=== PATIENT | female | born 1965 | race Two or more races ===

== ENCOUNTER 2020-05-16 14:01 | Outpatient (REF) | payer MEDICAID, SELFPAY ==
--- NOTE | 2020-05-16 | US_ITS ---
EXAMINATION: ULTRASOUND PELVIS COMPLETE. CLINICAL INFORMATION: Postmenopausal bleeding. COMPARISON: None TECHNIQUE: Transabdominal and transvaginal ultrasound the pelvis is performed. FINDINGS: On transabdominal ultrasound the uterus is retroverted and retroflexed measuring 5.9 cm and length and 3.1 cm in AP and 4.0 cm in transverse dimension. Endometrial thickness is 0.5 cm. There is a hypoechoic lesion extends fundal endometrial to the myometrium question scar, less likely fibroid. Small nabothian cyst is seen in the cervix. Right ovary measures 1.8 x 1.8 x 0.7 cm and volume 1.2 mL. Previously it measured 1.6 x 0.9 x 1.3 cm and volume 1.0 mL. Left ovary measures 10.7 x 0.6 x 0.7 cm and volume 0.4 mL. There is no free fluid in the cul-de-sac US/US pelvic complete IMPRESSION: Suspect scarring along the fundal endometrium. Small nabothian cysts seen in the cervix. The ovaries are unremarkable.
--- NOTE | 2020-05-16 | US_ITS ---
EXAMINATION: ULTRASOUND PELVIS COMPLETE. CLINICAL INFORMATION: Postmenopausal bleeding. COMPARISON: None TECHNIQUE: Transabdominal and transvaginal ultrasound the pelvis is performed. FINDINGS: On transabdominal ultrasound the uterus is retroverted and retroflexed measuring 5.9 cm and length and 3.1 cm in AP and 4.0 cm in transverse dimension. Endometrial thickness is 0.5 cm. There is a hypoechoic lesion extends fundal endometrial to the myometrium question scar, less likely fibroid. Small nabothian cyst is seen in the cervix. Right ovary measures 1.8 x 1.8 x 0.7 cm and volume 1.2 mL. Previously it measured 1.6 x 0.9 x 1.3 cm and volume 1.0 mL. Left ovary measures 10.7 x 0.6 x 0.7 cm and volume 0.4 mL. There is no free fluid in the cul-de-sac US/US transvaginal IMPRESSION: Suspect scarring along the fundal endometrium. Small nabothian cysts seen in the cervix. The ovaries are unremarkable.
== END 2020-05-16 14:02 | disposition home or self-care (01) ==
LOC: HO.US 14:01
PROVIDERS: Visit Provider Advanced Practice Midwife
DX: N95.0 Postmenopausal bleeding (principal)
CPT/HCPCS: 76830; 76856

== ENCOUNTER → 2020-05-24 09:49 | Outpatient (BNVA) | payer MEDICAID, SELFPAY | PROVIDERS: PCP Family Medicine; Referring Provider Family Medicine; Visit Provider Advanced Practice Midwife | DX: N93.9 Abnormal uterine and vaginal bleeding, unspecified (principal) | CPT/HCPCS: 99212 ==

== ENCOUNTER 2024-01-07 10:16 | Outpatient (AMB) | payer OTHER, SELFPAY ==
--- NOTE | 2024-01-07 10:21 | MHC.OFFWIV ---
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 Limited ROM. Ongoing. Worsening in last week Patient Tobacco Use Status: Never used Tobacco Allergies No Known Allergies Allergy (Unverified 01/07/24 10:27) Do you need a note to return to daycare/school/sports/work: No HPI HPI Comments History of Present Illness Details Patient is a 58yo F who presents for R shoulder pain Cousin translating for her and pt refuses interpretter She states ongoing R shoulder pain x months She started new job x 1 month and uses her arms to lift Significant decreased ROM R shoulder x 1 week No direct trauma or injury Minimal radiation down upper forearm with movement 6/10 at rest, 10/10 with movement Tried ibuprofen and tylenol wthout relief Not seen in past for this due to no insurance No other complaint PFSH Surgical History (System 05/09/22 @ 16:46 by Selene Ramos) Hx of section Hx of section Social History (System 05/09/22 @ 16:46 by Selene Ramos) Alcohol intake: never Patient Tobacco Use Status: Never used Tobacco Sexual orientation: Straight/Heterosexual Gender identity: Female Review of Systems Const Denies fever(s) Musc Denies myalgias, Reports arthralgias, Denies joint swelling, Denies numbness, Reports stiffness and Denies tingling Skin/Breast Denies erythema Neuro Denies numbness and Denies tingling Physical Exam Vital Signs: Last Vital Signs Temp 98.6 F 01/07/24 10:23 Pulse 78 01/07/24 10:23 BP 114/80 01/07/24 10:23 Pulse Ox 97 01/07/24 10:23 Oxygen Delivery Method Room Air 01/07/24 10:23 BMI result Body Mass Index 28.3 General: Non-toxic, NAD. Speaking full sentences. Skin: Warm dry throughout. No R shoulder edema, ecchymosis or erythema. Upper extremities are symmetrical in size and shape Eye: EOMI Neck: No c-spine tenderness. + R trapezius tenderness to palpation Respiratory: No tachypnea Cardiac: Radial oulse intact MSK: No R clavicular tenderness to palpation. Diffuse R shoulder pain to palpation over bicipital groove, AC joint and lareral humeral head. + global decreased ROM to R shoulder secondary to pain Neurology: A/O. No aphasia or facial droop. Gait without abnormality Psych: Good mood and affect Assessment & Plan Assessment & Plan (1) Shoulder pain, acute: Code(s): M25.519 - Pain in unspecified shoulder Qualifiers: Laterality: right Qualified Code(s): M25.511 - Pain in right shoulder Plan: Patient seen and evaluated. Very limited ROM R shoulder R shoulder xray: I viewed no calcific tendonitis or fx Ortho referral given muscle relaxant; lethargy. No alcohol or driving Phone interpretter used for discharge to ensure all understanding Patient gave verbal understanding and had no additional questions or concerns at time of discharge All questions answered (2) Frozen shoulder: Code(s): M75.00 - Adhesive capsulitis of unspecified shoulder Qualifiers: Laterality: right Qualified Code(s): M75.01 - Adhesive capsulitis of right shoulder Plan: see above Orders: Orders XR shoulder RT min 2V Today M25.519 - Pain in unspecified shoulder Referrals Orthopedics Referral M75.00 - Adhesive capsulitis of unspecified shoulder Medications: New cyclobenzaprine 5 mg PO TID PRN 14 tabs 0RF muscle spasm Coding Level of Care Code New Pt Level 3 (15374) Diagnoses Acute pain of right shoulder M25.511 Laterality: right Adhesive capsulitis of right shoulder M75.01 Laterality: right
[2024-01-07 10:23] VITALS: BP 114/80; PULSE 78; TEMP 37; O2SAT 97; BMI 28.3
== END 2024-01-07 11:32 | disposition home or self-care (01) ==
PROVIDERS: PCP Advanced Practice Midwife; Visit Provider Physician Assistant
DX: M25.511 Pain in right shoulder (principal); M75.01 Adhesive capsulitis of right shoulder
CPT/HCPCS: 99203

== ENCOUNTER 2024-01-07 10:56 | Outpatient (REF) | payer OTHER, SELFPAY ==
--- NOTE | ~2024-01-07 | XR_ITS ---
EXAMINATION: XR SHOULDER, RIGHT CLINICAL INFORMATION: Pain COMPARISON: None available. TECHNIQUE: Three views of the right shoulder. FINDINGS: The humeral head is well-positioned over the intact glenoid. The glenohumeral joint space is normal. There appears to be minimal osteophyte formation at the inferior aspect of the acromioclavicular joint. The coracoclavicular and acromiohumeral distances are normal. There is enthesophyte formation at the anterior acromion at the site of coracoacromial ligament attachment. Although nonspecific, this might be seen in patients with subacromial impingement disorder. No suspicious bone lesions. No evidence of calcific tendinitis. XR/XR shoulder RT min 2V IMPRESSION: * No acute abnormalities at the right shoulder. No fracture or subluxation. * There is enthesophyte formation of the anterior acromion; this might be observed in patients with a history of subacromial impingement disorder.
== END 2024-01-07 10:57 | disposition home or self-care (01) ==
LOC: HO.HMGCX 10:56
PROVIDERS: Visit Provider Physician Assistant
DX: M25.511 Pain in right shoulder (principal)
CPT/HCPCS: 73030

== ENCOUNTER 2024-01-29 12:35 | Outpatient (AMB) | payer OTHER, SELFPAY ==
--- NOTE | 2024-01-29 13:15 | MHC.OFFVIS ---
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 Today she denies injury. Her sister accompanies her today and she wants to use her for interpretation. She reports pain for several months and she cannot remember which medication she is taking. 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 She states she has limited ROM as well as pain in her right shoulder that is aggravated at night. She also experiences numbness and tingling in her shoulder. She has not had any injury in the past. 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 [facility] Surgical History (System 05/09/22 @ 16:46 by Selene Ramos) Hx of section Hx of section Social History (System 05/09/22 @ 16:46 by Selene Ramos) Alcohol intake: never Patient Tobacco Use Status: Never used Tobacco Sexual orientation: Straight/Heterosexual Gender identity: Female Review of Systems Const All systems reviewed & are unremarkable except as noted in HPI and below Physical Exam Const General: cooperative, healthy appearing, comfortable, no acute distress, well developed and alert Orientation/consciousness: patient oriented x3 HEENT Head: Yes normal to inspection, Yes normocephalic and Yes atraumatic Eyes General: appearance normal, both eyes and all related structures Resp Effort & Inspection: normal respiratory effort and able to speak in complete sentences Cardio Rate: regular rate Peripheral pulses: Peripheral pulses 2+ throughout GI Palpation (GI): Soft to palpation Skin Lesions: no lesions Rashes: no rashes Neuro General: patient oriented x3 Extrem Other: Right shoulder: Normal to inspection. Tenderness over the bicipital groove and along the deltoid region of the shoulder. Forward flexion to 80, external rotation to 45, and I can passively extend her to 50 degrees. 5/5 RTC strength. Negative Escobedo and cross body abduction. NVI. Office Procedures Joint Injection/Drain Joint Injection/Drain Primary Site: right shoulder Prep: site was prepped using aseptic technique, ethochloride spray was applied and injection warnings given Injected: 80 mg of, DepoMedrol, with 8 mL of, 1% plain lidocaine and in the subcromial space Approach Used: posterolateral Procedure: The patient tolerated the procedure well and there was some relief with the local anesthesia Coding 74247 - Glenohumeral/Tronchanteric Bursa/Intraarticular Procedure code (CPT) selection complete Results Reviewed Results Reviewed: xrays of the right shoulder obtained on 01/07/24 XR shoulder RT min 2V IMPRESSION: * No acute abnormalities at the right shoulder. No fracture or subluxation. * There is enthesophyte formation of the anterior acromion; this might be observed in patients with a history of subacromial impingement disorder. Assessment & Plan Assessment & Plan (1) Frozen shoulder: Code(s): M75.00 - Adhesive capsulitis of unspecified shoulder Category: Medical Qualifiers: Laterality: right Qualified Code(s): M75.01 - Adhesive capsulitis of right shoulder (2) Rotator cuff tear, right: Code(s): M75.101 - Unspecified rotator cuff tear or rupture of right shoulder, not specified as traumatic Category: Medical Plan We discussed options today, which include steroid injection. The patient did consent to move forward with the right shoulder injection, which was tolerated well. I recommended rest, ice, and elevation and OTC anti-inflammatories as needed for discomfort. She will begin a course of physical therapy. If symptoms persist or worsen over the next 6-8 weeks, patient will contact the office, otherwise she will see me back in [address] Fregoso, sooner if needed. Of note, the patient did bring in MRI images on film from [place], I did ask that she bring these images to her appt with Dr Fregoso as it did show some irregulatiry of the supraspinatus. Orders: Orders PT Evaluation and Treatment 01/29/24 M75.01 - Adhesive capsulitis of right shoulder, M75.101 - Unspecified rotator cuff tear or rupture of right shoulder, not specified as traumatic Patient Instructions: Scribed for Kumar-Ana Elizabeth PA-C, by luh Arzate scribe, on 01/29/2024 at 1:15 PM EST.? I, Kallie Elizabeth PA-C, have personally reviewed and agree with the information entered by the gardenia. Coding Level of Care Code New Pt Level 3 (51565) Diagnoses Adhesive capsulitis of right shoulder M75.01 Laterality: right Rotator cuff tear, right M75.101 CPT Codes Coding - Joint 7: 13759 - Glenohumeral/Tronchanteric Bursa/Intraarticular ([id number])
== END 2024-01-29 14:36 | disposition home or self-care (01) ==
PROVIDERS: Visit Provider Physician Assistant
DX: M75.01 Adhesive capsulitis of right shoulder (principal); M75.101 Unspecified rotator cuff tear or rupture of right shoulder, not specified as traumatic
CPT/HCPCS: 20610; 99203

== ENCOUNTER → 2024-01-29 12:35 | Outpatient (BNVA) | payer OTHER, SELFPAY | PROVIDERS: Visit Provider Physician Assistant | DX: M75.01 Adhesive capsulitis of right shoulder (principal); M75.101 Unspecified rotator cuff tear or rupture of right shoulder, not specified as traumatic | CPT/HCPCS: 20610; 99202; J1010 ==

== ENCOUNTER 2024-02-24 14:00 | Outpatient (RCR) | payer OTHER, SELFPAY ==
--- NOTE | 2024-02-10 13:30 | MHC.PT.EP ---
[facility] [place] Office [place] Office [place] Office [address] [phone] F: [phone] F: [phone] F: [phone] F: [phone] Physical Therapy Plan of Care Date of Evaluation: 02/10/24 Date of Surgery: Diagnosis: adhesive capsulitis of right shoulder Assessment: Patient is a 58 year old R handed male who presents with s/s consistent with R shoulder pain, adhesive capsulitis. She does not currently work but wants to get back to working. Patient past medical history is unremarkable. Current impairments include pain, posture, ROM, strength, activity tolerance and functional mobility. Functional limitations include decreased ability to reach, sleep, lift, dress, push, pull and carry. Patient is motivated with good rehab potential. Skilled PT will address impairments and functional limitations in order to achieve goals. Frequency and Duration: The patient will be seen 2x/week for 5 weeks Short Term Goals: I with HEP - 2 weeks AROM flexion to 160 -3 weeks ER AROM to 58 - 3 weeks Senior Living Goals: SPADI 30/130 or better - 5 weeks AROM WNL and pain free - 5 weeks Strength 4+/5 grossly - 5 weeks Treatment Plan: Modalities to reduce pain, spasms and effusion. Manual therapy to restore motion and function. Therapeutic exercise to improve strength and flexibility. Neuromuscular re-education for posture and balance. Therapeutic activities to return to functional activities of daily living. Electronically signed by: Vargas Farnsworth PT Please sign and return to therapist. Thank you for your referral.
--- NOTE | 2024-04-30 13:18 | MHC.PT.DC ---
[facility] [place] Office [place] Office [place] Office [address] Rodo Vergara [address] [phone] F: [phone] F: [phone] F: [phone] F: [phone] Physical Therapy Discharge Report Diagnosis: adhesive capsulitis of right shoulder Date of Surgery: Date of Evaluation: 02/10/24 Date of Discharge: 03/01/24 Treatments to Date: 2 Cancellations to Date: No Shows to Date: Discharge Status: Patient Elected to Stop Discharge Summary: 02/24/24: signfiicantly less s/s. progressed ROM and strength. assess response and update HEP NV. Patient is a 58 year old R handed male who presents with s/s consistent with R shoulder pain, adhesive capsulitis. She does not currently work but wants to get back to working. Patient past medical history is unremarkable. Current impairments include pain, posture, ROM, strength, activity tolerance and functional mobility. Functional limitations include decreased ability to reach, sleep, lift, dress, push, pull and carry. Patient is motivated with good rehab potential. Skilled PT will address impairments and functional limitations in order to achieve goals. Electronically signed by: Vargas Farnsworth, PT Please sign and return to therapist. Thank you for your referral.
== END 2024-04-30 13:21 | disposition home or self-care (01) ==
LOC: HO.PTCHIC 14:00
PROVIDERS: Visit Provider Physician Assistant
DX: M75.01 Adhesive capsulitis of right shoulder (principal); M75.101 Unspecified rotator cuff tear or rupture of right shoulder, not specified as traumatic
CPT/HCPCS: 97110; 97162

== ENCOUNTER 2024-03-30 12:31 | Outpatient (AMB) | payer OTHER, SELFPAY ==
--- NOTE | 2024-03-30 12:32 | A.OFFVIS_ITS ---
Vital Signs 03/30/24 12:33 Height 5 ft 5 in Weight 170 lb BMI 28.3 Intake Visit Reasons: OV-R shoulder pain ER follow up DOI 01/09/24 Intake Note: Mark is a 58 year old female who presents today for a follow up of her right shoulder. She was last seen with Kallie Elizabeth on 01/29/24 who injected the right shoulder and referred for further review of MRI. Patient has brought printed images of her MRI done in [place] Allergies No Known Allergies Allergy (Unverified 01/29/24 13:20) HPI HPI OV-R shoulder pain ER follow up DOI 01/09/24: Details: Mark is a 58 year old female who presents today for a follow up of her right shoulder. She was last seen with Kumar-Ana Elizabeth on 01/29/24 who injected the right shoulder and referred for further review of MRI. Patient has brought printed images of her MRI done in [facility]. She describes a history of injury to her right shoulder several years ago. She has since had intermittent pain but over the last 3 months it has become extremely difficult for her to get through her day. 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 She describes pain radiating in a subdeltoid distribution especially at night. She had an MRI done in the [facility] and states that this showed she had a tear of her rotator cuff. [facility] Surgical History (System 05/09/22 @ 16:46 by Selene Ramos) Hx of section Hx of section Social History (System 05/09/22 @ 16:46 by Selene Ramos) Alcohol intake: never Patient Tobacco Use Status: Never used Tobacco Sexual orientation: Straight/Heterosexual Gender identity: Female Physical Exam Vital Signs: BMI result Body Mass Index 28.3 Extrem Other: 4/5 ec + h/n ER to 35 Results Reviewed Results Reviewed: I personally reviewed the MR images. I reviewed her MRI and there is a full-thickness tear of the supraspinatus. There is no obvious evidence of atrophy but this is difficult to accurately assess given the printed out images of the MRI. Assessment & Plan Assessment & Plan (1) Rotator cuff tear, right: Code(s): M75.101 - Unspecified rotator cuff tear or rupture of right shoulder, not specified as traumatic Category: Medical Plan: This is a 58-year-old woman with a full-thickness tear of her right supraspinatus. I recommend operative intervention. I had a long discussion regarding the risks, benefits and alternatives. I did discuss that this repair may not be possible given the duration since injury. If we are able to repair it I did discuss the importance of postoperative therapy and the modification that of activities that would be required. I also discussed the risk of infection, stiffness, pain, need for further surgery. She expressed understanding and we will proceed forward accordingly. Coding Level of Care Code Est Pt Level 4 (07965) Diagnoses Rotator cuff tear, right M75.101
[2024-03-30 12:33] VITALS: BMI 28.3
== END 2024-03-30 12:59 | disposition home or self-care (01) ==
PROVIDERS: Visit Provider Orthopaedic Surgery
DX: M75.101 Unspecified rotator cuff tear or rupture of right shoulder, not specified as traumatic (principal)
CPT/HCPCS: 99214

== ENCOUNTER → 2024-03-30 12:31 | Outpatient (BNVA) | payer OTHER, SELFPAY | PROVIDERS: Visit Provider Orthopaedic Surgery | DX: M75.101 Unspecified rotator cuff tear or rupture of right shoulder, not specified as traumatic (principal) | CPT/HCPCS: 99212 ==

== ENCOUNTER 2024-04-22 07:30 | Day surgery (SDC) | payer OTHER, SELFPAY ==
[2024-04-07 14:29] VITALS: BMI 29.2
--- NOTE | 2024-04-21 09:15 | P.CONAN_ITS ---
Documented by User: Geneva Stanton NP 04/21/24 09:15 HPI - Anesthesia Eval Consult details Narrative: 58yo F for Right Arthroscopic Rotator Cuff Repair PMFSH Active Problems Active Problems: All Active Problems Rotator cuff tear, right (Acute) Frozen shoulder (Acute) Shoulder pain, acute (Acute) Encounter to discuss test results (Acute) Encounter to discuss test results (Acute) Past Medical History Medical History Migraines Vitamin D deficiency Back pain Presbyopia Insomnia Surgical History Surgical History Hx of cholecystectomy Hx of section Social History Social History Are you a primary nurse healthcare manager to a significant other at home: No Do you presently have visiting nurse or other home services: No Alcohol intake: never Patient Tobacco Use Status: Never used Tobacco Use of substances other than those prescribed or required for medical reasons: No Have you been hit, kicked, punched, or otherwise hurt by someone within the past year? If so, by whom?: No Are you DNR?: No Advance Directives: No Advance Directives Information Provided: Yes Advance Directives on File: No Recently lost weight without trying: No Eating poorly because of decreased appetite: No Nutrition Risks: No Nutritional Risk Patient : Yes (implants on the upper and lower mouth) : No Poor oral hygiene: No Sexual orientation: Straight/Heterosexual Gender identity: Female Meds Allergies Allergy/AdvReac Type Severity Reaction Status Date / Time No Known Allergies Allergy Unverified 01/29/24 13:20 Exam Height,Weight and Vital Signs: Height 5 ft 4 in Weight 77.111 kg Assessment and Plan Assessment Anesthesia Assessment: Chart Reviewed Documented by User: Areli Quintero MD 04/22/24 08:55 PMFSH Past Medical History Medical History Migraines Vitamin D deficiency Back pain Presbyopia Insomnia Family History Family history of problems with anesthesia: No Surgical History Surgical History Hx of cholecystectomy Hx of section History of Problems with Anesthesia: No Social History Social History Are you a primary nurse healthcare manager to a significant other at home: No Do you presently have visiting nurse or other home services: No Alcohol intake: never Patient Tobacco Use Status: Never used Tobacco Use of substances other than those prescribed or required for medical reasons: No Have you been hit, kicked, punched, or otherwise hurt by someone within the past year? If so, by whom?: No Are you DNR?: No Advance Directives: No Advance Directives Information Provided: Yes Advance Directives on File: No Recently lost weight without trying: No Eating poorly because of decreased appetite: No Nutrition Risks: No Nutritional Risk Patient : Yes (implants on the upper and lower mouth) : No Poor oral hygiene: No Sexual orientation: Straight/Heterosexual Gender identity: Female Meds Allergies Allergy/AdvReac Type Severity Reaction Status Date / Time No Known Allergies Allergy Unverified 01/29/24 13:20 Exam Airway Mallampati Class: II TM Dist: >3cm Neck ROM: Full Heart: rrr Lungs: cta Assessment and Plan Assessment Anesthesia Assessment: Anesthesia Plan Discussed Final Anesthetic Review Family History of Problems with Anesthesia: No History of Problems with Anesthesia: No NPO: Yes ASA Class: II Final Preanesthetic Review: No Changes in Pt Med Stat, Meds/Allgs Chart Reviewed, Consent Obtained/Reviewed and Anes Risks/Benef Reviewed Patient Risk: Low Procedure Risk: Intermediate Anesthetic Plan Anesthetic Plan: GA and Regional Block Disposition: Standard PACU
[2024-04-22] VITALS (8 sets, daily range): BP systolic 114–143; BP diastolic 62–88; PULSE 65–78; RESP 16–20; TEMP 36.1–36.9; O2SAT 95–100; BMI 29.2
[2024-04-22] MEDS: Lactated Ringers 1,000 ML 100 ML IVCONT (07:52)
--- NOTE | 2024-04-22 08:20 | MHC.SHP ---
Pre-Procedural Eval Section A - 24 Hr Update-Section A only Date of Service: 04/22/24 The patient is an INPATIENT: No Changes since office visit: No Cold of Flu in the past 2 weeks, No New Medical Problems, No Changes in Medication and No Patient answered all questions The patient has been examined within 24 hours of the surgical procedure. The History & Physical has been completed within 30 days and I have reviewed it.: Yes Section B - Complete if H&P > 30 days Chief Complaint: Unspecified rotator cuff tear or rupture of right Allergies: Allergies Allergy/AdvReac Type Severity Reaction Status Date / Time No Known Allergies Allergy Unverified 01/29/24 13:20 Plan I have reviewed the history and physical and performed a pertinent physical examination on my patient. No changes have occurred unless specified. Time Spent With Patient Time: Total time managing care of this patient today ____ minutes.
[2024-04-22] MEDS: ondansetron HCL 4 MG/2 ML VIAL IVPUSH (12:51)
--- NOTE | 2024-04-22 13:40 | P.BOP_ITS ---
Brief Operative Note Date of Service: 04/22/24 Pre-op diagnosis: right rtc tear Post-op diagnosis: same Procedure: Repair subscapularis Repair supra and infraspinatus Implants: Ramírez and Nephew 4.75 Helacoil double loaded x 2, Ramírez adn Nephew 5.5 Helacoil knotless x 2 Surgeon: Nikolay Fregoso MD Anesthesia: GETA and regional Was an Systems Lead used for this Procedure?: Yes Systems Lead: Cookie Brunner Estimated blood loss (mL): 25 IV fluids (mL): 1,200 Pathology: none sent Condition: stable Disposition: PACU
--- NOTE | 2024-04-30 16:20 | P.OP_ITS ---
Operative Note Operative Note Date of Service: 04/22/24 Narrative: Date of Service: 04/22/24 Pre-op diagnosis: right rtc tear Post-op diagnosis: same Procedure: Repair subscapularis Repair supra and infraspinatus Implants: Ramírez and Nephew 4.75 Helacoil double loaded x 2, Ramírez adn Nephew 5.5 Helacoil knotless x 2 Surgeon: Nikolay Fregoso MD Anesthesia: GETA and regional Was an Metal Buildings Assembler used for this Procedure?: Yes Metal Buildings Assembler: Cookie Brunner Estimated blood loss (mL): 25 IV fluids (mL): 1,200 Pathology: none sent Condition: stable Disposition: PACU Procedure in detail: Patient was brought to the operating room and placed the the beach chair position. All bony prominences were well padded and the limb was prepped and draped in standard sterile fashion. A time out was called to identify proper site, proper procedure and proper surgeon. IV antibiotics per weight were a dministered. I began by making a posterolateral stab incision with a 15 blade. A blunt trochar was placed into the glenohumeral joint and I insufflated the joint with saline and a 30 degree arthroscope was placed. I established an outside- in anterior portal just distal to the biceps tendon. I then began my inspection of the glenohumeral joint. There was a superior labral tear with a absent biceps tendon. There were minimal cartilage changes at the inferior glenoid without humeral head changes. There was a full thickness undersurface RTC tear. The subcapularis was partially torn ( 50%) at its superior attachment. I debrided the loose tissue and placed 2 loop sutures through the subscapularis and used a bur to bur down the bony bed. I then reattached to its insertion site using a 5.0 knotless Helacoil anchor. I was satisfied with the repair I debrided the loose cartilage of the glenoid and the degenerative labral tearing and performed a biceps tenotomy. I then removed the trochar and entered the subacromial space. A direct lateral portal was then established and I performed a bursectomy. The cuff was then examined. There was a full thickness tear of the supra and infraspinatus without retraction. The tear was mobile. I placed two medial row double loaded anchors after using a tap just adjacent to the articular cartilage and then brought the suture limbs ( 8) through the medial cuff. I then debrided the bare area down to bleeding bone and, using a cross bridge configuration, brought 4 limbs to each of two lateral 5.0 anchors. This re-approximated the cuff anatomy michael tomically. Once I was satisfied with the repair final images were captured and I removed all instrumentation. Portals were closed with nylon. Patient was placed in an abduction sling, extubated and brought to the recovery room in stable condition. There were no known complications.
== END 2024-04-22 13:52 | disposition home or self-care (01) ==
PROVIDERS: Visit Provider Orthopaedic Surgery
PROC: (CPT 29827; principal; 2024-04-22 10:00)
DX: M75.101 Unspecified rotator cuff tear or rupture of right shoulder, not specified as traumatic (principal); M25.511 Pain in right shoulder; Z87.828 Personal history of other (healed) physical injury and trauma
CPT/HCPCS: 29827; 29822; C1713; J0131; J0665; J0690; J1100; J1885; J2003; J2250; J2405; J2704; J3010

== ENCOUNTER → 2024-04-22 07:30 | Outpatient (BNV) | payer OTHER, SELFPAY | PROVIDERS: Visit Provider Orthopaedic Surgery | DX: M75.121 Complete rotator cuff tear or rupture of right shoulder, not specified as traumatic (principal) | CPT/HCPCS: 29827 ==

== ENCOUNTER 2024-04-23 12:57 | Emergency (ER) | payer OTHER, SELFPAY ==
[2024-04-23 13:18] VITALS: BP 138/76; PULSE 71; RESP 16; TEMP 36.6; O2SAT 99; BMI 29.2
--- NOTE | 2024-04-23 13:27 | ED.UPPEXIN ---
HPI - Extremity Injury (Upper) General Chief Complaint: Extremity Injury, Upper Stated Complaint: POST OP SHOULDER PAIN,DRIED BLOOD ON DRESSING Time Seen by Provider: 04/23/24 15:27 Source: patient, family, EMS, RN notes reviewed and old records reviewed Mode of arrival: EMS Limitations: no limitations History of Present Illness ED Provider: EDWINA OKEEFE PA-C HPI narrative: 58 year old Citizen Of [place] speaking female with pmhx significant for migraines, 1 day post-op right rotator cuff (subscapularis, supra and infraspinatus) [place] [facility] [place] [facility] presents to the ED today via EMS for evaluation of bleeding from the surgical site which began last night and continued into the morning. Reports pain is currently 5/10. Taking oxycodone at home, last dose being around 0700 this morning. Denies any fatigue, chest pain, sob. No other concerns at this time. Related Data Previous Rx's ?Medication ?Instructions ?Recorded morphine 15 mg tablet,extended 15 mg PO Q12H pain severe 3 days 04/22/24 release (MS Contin) #6 tabs oxycodone-acetaminophen 5 mg-325 1 tab PO Q4-6H PRN pain (scale 04/22/24 mg tablet (Percocet) score 4-6) 7 days #42 tabs Allergies Allergy/AdvReac Type Severity Reaction Status Date / Time No Known Allergies Allergy Verified 04/23/24 13:21 Review of Systems Review of Systems: Yes all other systems are reviewed and are negative PMFSH Past Medical History Attestation statement: The following information was validated with the patient. Source: old records reviewed and nursing notes reviewed Medical History Migraines Vitamin D deficiency Back pain Presbyopia Insomnia Surgical History Hx of cholecystectomy Hx of section Social History Social History Are you a primary day care director to a significant other at home: No Do you presently have visiting nurse or other home services: No Alcohol intake: never Patient Tobacco Use Status: Never used Tobacco Advance Directives: No Advance Directives Information Provided: No Do you have a plan to hurt others: No Plan Sexual orientation: Straight/Heterosexual Gender identity: Female Physical Exam Vital Signs: Vital Signs: Last Vital Signs Temp 97.9 F 04/23/24 16:17 Pulse 71 04/23/24 16:17 Resp 16 04/23/24 16:17 BP 138/76 04/23/24 16:17 Pulse Ox 99 04/23/24 16:17 O2 Del Method Room Air 04/23/24 16:17 BMI result Body Mass Index 29.2 vital signs stable General: Well appearing, in no acute distress. Skin: see below Head: Normocephalic, atraumatic. EENT: Hearing is intact b/l. Conjunctiva clear. PERRLA. Moist mucous membranes.? Neck: Supple without LAD Cardiac: Chest wall symmetric. RRR Lungs: Normal respiratory effort without accessory muscle use. CTA bilaterally Back: No midline spinous or paraspinal tenderness. No step off deformity. Ext: +RUE in sling with dressings applied to right shoulder. dried blood noted to anterior and posterior dressings. no active bleeding. sutures intact. no surrounding erythema or warmth. Neuro: AOx3. Normal speech. Ambulating with steady gait. Psych: Appropriate mood and affect. Responds appropriately to questions. Course Course Course Narrative: This is a Rapid Medical Examination (RME) performed by Andrew Burleson PA-C in triage. Full HPI, ROS, assessment and treatment plan per primary provider in the Main ED. 58 yo Citizen [place] speaking female presents to the ER POD #1 from right shoulder surgery (subscapularis, supra and infraspinatous repair) with Dr. Fregoso yesterday who presents to the ER for evaluation of bleeding from the surgical site that started last night and continued this morning. pain currently 5/10. blood on the anterior and posterior dressings but no active bleeding right now. Plan: f/u with kamran Fregoso texted from triage. awaiting response Medications Administered Discontinued Medications Generic Name Dose Route Start Last Admin Trade Name Freq PRN Reason Stop Dose Admin Oxycodone HCl 5 mg 04/23/24 15:47 04/23/24 15:57 Oxycodone Hcl Immed Release 5 Mg Tablet PO 04/23/24 15:48 5 mg ONCE ONE Administration Medical Decision Making Medical Decision Making MDM Narrative: 58 year old Citizen Of [place] speaking female with pmhx significant for migraines, 1 day post-op right rotator cuff (subscapularis, supra and infraspinatus) [place] [facility] [place] presents to the ED today via EMS for evaluation of bleeding from the surgical site which began last night and continued into the morning. Vital signs stable. Afebrile. She is nontoxic appearing and in NAD. On exam, RUE in sling with dressings applied to right shoulder. dried blood noted to anterior and posterior dressings. no active bleeding. sutures intact. no surrounding erythema or warmth. Triage provider, Rona ADAME, contacted Dr. Fregoso via tiger text regarding patient's presentation. Dr. Fregoso recommending re-dressing the wound with dry dressing with foam tape. States this is a very normal presentation post-op. Would like patient to follow up as scheduled out patient next week. states she can call their office tomorrow if she has any further concerns. No imaging or blood work warranted at this time. 1600 -- dressing changed. patient tolerated well. medicated with oxycodone for pain control. Patient has remained stable throughout ED visit today. Discussed worrisome signs and symptoms and when to return to the ED. All questions answered at this time. Patient is agreeable with disposition and stable for discharge. Differential Diagnosis Differential Diagnoses: The differential diagnosis associated with the presentation includes as above. Admission/Observation Not indicated Consult Healthcare Provider Management of the patient was discussed with: [employer] Ha[employer] Chain Feeder (Dr. Fregoso (ortho)) External Record Review External record reviewed: Inpatient record, Office record, Outpatient record, Prior outpatient labs, Prior outpatient radiology, Primary care record and Outside ED record Prescription Management I considered prescription management with: Pain Medication Social Determinants Patient?s care significantly limited by Social Determinants of Health including: Other Social Determinant of Health Critical Care Time Critical Care Time Critical Care Time: No Discharge Plan Discharge Clinical Impression: Status post right rotator cuff repair Patient Disposition: Home, Self-Care Additional Instructions: You were evaluated in the ED today for concerns of bleeding post rotator cuff repair. As discussed, your surgeon (Dr. Fregoso) states this is fairly normal post-op. Your dressings were changed today without active bleeding noted. Dr. Fregoso would like you to follow up with their office next week as scheduled. If you feel like you need to be seen sooner, you are more than welcome to call their office tomorrow. Continue taking your pain medication as prescribed at home. You were given 1 dose of oxycodone while in ED today. Return with new or worsening symptoms. In the case of an emergency call 911. Prescriptions: No Action oxycodone-acetaminophen [Percocet] 5-325 mg tablet 1 tab PO Q4-6H PRN (Reason: pain (scale score 4-6)) 7 Days Qty: 42 0RF Rx Instructions: Partial Fill upon patient request. morphine [MS Contin] 15 mg tablet extended release 15 mg PO Q12H 3 Days Qty: 6 0RF Rx Instructions: Partial Fill upon patient request. [place] [facility] [facility] [Provider Group] Interventions: ED Discharge Assessment Last Done: 04/23/24 16:17 Discharge Date/Time: 04/23/24 16:18 Print Language: Citizen Of [place]
[2024-04-23] MEDS: oxyCODONE HCl Immed Release 5 MG TABLET PO (15:57)
[2024-04-23 16:17] VITALS: BP 138/76; PULSE 71; RESP 16; TEMP 36.6; O2SAT 99
== END 2024-04-23 16:18 | disposition home or self-care (01) ==
PROVIDERS: Emergency Provider Student in an Organized Health Care Education/Training Program
DX: M96.830 Postprocedural hemorrhage of a musculoskeletal structure following a musculoskeletal system procedure (principal); M75.101 Unspecified rotator cuff tear or rupture of right shoulder, not specified as traumatic
CPT/HCPCS: 99283

== ENCOUNTER 2024-04-30 13:26 | Outpatient (AMB) | payer OTHER, SELFPAY ==
--- NOTE | 2024-04-30 13:30 | MHC.OFFVIS ---
Intake Visit Reasons: PO RT RTC repair 04/22/24 NE Intake Note: Mark is a 58 year old right hand dominant female who presents to the office today for a RT RTC repair 04/22/24 NE. Pt states her pain is mild, she feels it getting better every day. Allergies No Known Allergies Allergy (Verified 04/30/24 13:51) HPI HPI PO RT RTC repair 04/22/24 NE: Details: 58-year-old right hand dominant female who presents in the office today 8 days status post right arthroscopic subscapularis repair with supra and infraspinatus repair which was performed on 04/22/[address] Fregoso. The patient presented to the ED via EMS on 04/23/24 for evaluation of bleeding from the surgical site. The dressing was changed without active bleeding and recommended to continue pain medication as prescribed at home. While in the office today, the patient reports a significant amount of right shoulder pain which has been improving everyday. PFSH Medical History Migraines Vitamin D deficiency Back pain Presbyopia Insomnia Surgical History Hx of cholecystectomy Hx of section Social History Are you a primary medical care manager to a significant other at home: No Do you presently have visiting nurse or other home services: No Alcohol intake: never Patient Tobacco Use Status: Never used Tobacco Sexual orientation: Straight/Heterosexual Gender identity: Female Review of Systems Const All systems reviewed & are unremarkable except as noted in HPI and below Physical Exam Extrem Other: right shoulder incision sites are clean dry and intact. No surrounding erythema or drainage. No signs of infection. 45 degrees FF and ABD. ER to neutral. NVI. Assessment & Plan Assessment & Plan (1) Status post right rotator cuff repair: Code(s): Z98.890 - Other specified postprocedural states Category: Surgical Plan Ms. Rahman is a 58-year-old right hand dominant female who presents in the office today 8 days status post right arthroscopic subscapularis repair with supra and infraspinatus repair which was performed on 04/22/[address] Fregoso. The patient presented to the ED via EMS on 04/23/24 for evaluation of bleeding from the surgical site. The dressing was changed without active bleeding and recommended to continue pain medication as prescribed at home. While in the office today, the patient reports a significant amount of right shoulder pain which has been improving everyday. The patient was referred to physical therapy to work on gentle range of motion. She was encouraged to remain in the sling for 6 weeks post-op. She complains of a significant amount of pain; however, she is not willing to take the narcotic pain medication. I have sent a prescription for ibuprofen 800 mg PO TID PRN and tramadol 50 mg PO Q6H PRN for pain. Follow up will be in [address] Fregoso, or sooner if needed. Orders: Orders PT Evaluation and Treatment 04/30/24 M75.101 - Unspecified rotator cuff tear or rupture of right shoulder, not specified as traumatic Medications: New ibuprofen 800 mg PO TID PRN 90 tabs 0RF pain 30 days tramadol 50 mg PO Q6H 28 tabs 0RF pain 7 days Patient Instructions: Scribed by April Koch certified medical transcriptionist, for Cookie Brunner PA-C on 04/30/24 at 2:29 pm EST. Coding Level of Care Code Global (63273) Diagnoses Status post right rotator cuff repair Z98.890
== END 2024-04-30 14:27 | disposition home or self-care (01) ==
PROVIDERS: Visit Provider Physician Assistant
DX: Z98.890 Other specified postprocedural states (principal)
CPT/HCPCS: 99024

== ENCOUNTER → 2024-04-30 13:26 | Outpatient (BNVA) | payer OTHER, SELFPAY | PROVIDERS: Visit Provider Physician Assistant | DX: Z47.89 Encounter for other orthopedic aftercare (principal); Z98.890 Other specified postprocedural states | CPT/HCPCS: 99212 ==

== ENCOUNTER 2024-05-19 09:27 | Outpatient (AMB) | payer OTHER, SELFPAY ==
--- NOTE | 2024-05-19 09:30 | MHC.PC.OV ---
Vital Signs 05/19/24 09:31 Height 5 ft 4 in Weight 159 lb BMI 27.3 BP 108/70 Blood Pressure Location Lt brachial Position Sitting Pulse 80 Pulse Source Pulse Oximeter Pulse Oximetry (%) 98 Oxygen Delivery Method Room Air Intake Visit Reasons: new patient Hand Splitter Required: No Accompanied by: sister in law Allergies No Known Allergies Allergy (Verified 05/19/24 09:40) Medication List - Last Reconciled 05/19/24 by Lisha Osei PA-C ibuprofen 800 mg PO TID PRN 30 days Tobacco use date assessed: 05/19/24 Dental Screening Dental Screen Date: 05/19/24 Did you have a dental visit in the last 12 months?: No Did you have a dental problem in the last 6 months where you did not have access to dental care?: No Was dental information given to patient?: Patient has dentist HPI new patient HPI Details 58-year-old female with past medical history of migraines coming to the office with the 1st time.? In review of the notes, patient underwent right rotator cuff (subscapularis, supra and infraspinatus) repair at [facility] [place]. Fregoso 04/23/2024.? Patient presented to [facility] ED 04/24/2024 with bleeding from the surgical sites dressing changed and patient was discharged home.? Patient is working with physical therapy s/p rotator cuff repair. Family member interpreted for the duration of this visit, declined formal retail merchandising specialist. Patient states her last Pap smear was last year and does not regularly follow with gynecology. Patient has never had a colonoscopy or mammogram. She does have 1 concern today she states she wakes up in the morning with a salty taste in her mouth denies runny nose or drainage in the ears. She also mentioned 1 month ago she had left lower quadrant pain that remained for about a week and went away. She has had no recurrence of this pain and no history prior to that episode. She does have a constant issue with constipation. [facility] Medical History (Updated 05/19/24 @ 13:09 by Lisha Osei PA-C) Migraines Vitamin D deficiency Back pain Presbyopia Insomnia Surgical History Rotator cuff tear, right Hx of cholecystectomy Hx of section Social History Housing: House Are you a primary career services representative to a significant other at home: No Do you presently have visiting nurse or other home services: No Alcohol intake: never Patient Tobacco Use Status: Never used Tobacco e-Cigarette/Vaping Use: Never Used Second Hand Smoke Exposure: No service: No Current occupational status: unemployed Sexual orientation: Straight/Heterosexual Gender identity: Female Cognitive needs: No Hearing needs: No Vision needs: Yes Female Reproductive History Menstrual Total pregnancies: 1 Full term: 1 History of abnormal pap smear: No Questionnaire PHQ-9 Over the last 2 weeks, how often have you been bothered by any of the following problems? 1. Little interest or pleasure in doing things: not at all 2. Feeling down, depressed, or hopeless: not at all 3. Trouble falling or staying asleep, or sleeping too much: not at all 4. Feeling tired or having little energy: not at all 5. Poor appetite or overeating: not at all 6. Feeling bad about yourself - or that you are a failure or have let yourself or your family down: not at all 7. Trouble concentrating on things, such as reading the newspaper or watching television: not at all 8. Moving or speaking so slowly that other people could have noticed. Or the opposite - being so fidgety or restless that you have been moving around a lot more than usual: not at all 9. Thoughts that you would be better off or of hurting yourself in some way: not at all Total score: 0 Source: Developed by Drs. Herminio Starr, Dorie Cheng, Matthew Salazar and colleagues, with an educational ryan from [employer]. Thrive Questionnaire Date Thrive assessed: 05/19/24 I am a: Patient What is your living situation today?: I have a steady place to live Within the past 12 months, did the food you bought not last and you didn't have the money to get more?: I choose not to answer this question Within the past 12 months, did you worry whether your food would run out before you got money to buy more?: I choose not to answer this question Do you have trouble paying for medicines?: I choose not to answer this question Do you have trouble getting transportation to medical appointments?: I choose not to answer this question Do you have trouble paying your heating and electricity bill?: No Do you have trouble taking care of your child, family member or friend?: No Do you have trouble with day-to-day activities such as bathing, preparing meals, shopping, managing finances, etc.?: Yes Are you currently unemployed and looking for a job?: Yes Are you interested in more education?: Yes Please select the resources that you would like help with: None Currently or been in a relationship where the following occur: I choose not to answer THRIVE Score: 0 AUDIT C Alcohol Use Questionnaire (AUDIT-C) 1. How often do you have a drink containing alcohol?: Never Total Score: 0 EFREN-7 AMB Questionnaire EFREN-7 Date EFREN - 7 assessed: 05/19/24 Feeling nervous, anxious, or on edge: 0 = Not at all Not being able to stop or control worryin = Not at all Worrying too much about different things: 0 = Not at all Trouble relaxin = Not at all Being so restless that it is hard to sit still: 0 = Not at all Becoming easily annoyed or irritable: 0 = Not at all Feeling afraid as if something awful might happen: 0 = Not at all Total EFREN-7 score (0-4 normal; 5-9 mild; 10-14 moderate; 15-21 severe): 0 Source: Developed by Drs. Herminio Starr, Dorie Cheng, Matthew Salazar and colleagues, with an educational ryan from [employer]. EFREN-7 Assessment Billing EFREN-7 Assessment Tool: EFREN-7 Assessment 36319 Review of Systems Const Denies body aches, Denies fatigue, Denies fever(s), Denies frequent falls, Denies headache(s) and Denies weakness Eyes Reports no additional complaints and Denies change in vision ENT Denies dizziness, Denies facial pain, Denies headache(s) and Denies nasal congestion Card Denies chest pain, Denies syncope, Denies irregular heart rhythm, Denies leg edema, Denies lightheadedness and Denies dyspnea Resp Denies cough and Denies dyspnea GI Denies abdominal pain, Reports constipation, Denies dyspepsia, Denies diarrhea, Denies nausea and Denies vomiting Denies urinary frequency, Denies dysuria, Denies urinary hesitancy and Denies urinary urgency Musc Details: right shoulder pain Denies back pain and Denies myalgias Skin/Breast Reports system reviewed and no additional complaints, except as documented Neuro Denies dizziness, Denies syncope, Denies frequent falls, Denies headache(s) and Denies weakness Psych Reports no additional complaints Endo Denies fatigue Physical exam (Primary Care) Vital Signs: Last Vital Signs Pulse 80 05/19/24 09:31 BP 108/70 05/19/24 09:31 Pulse Ox 98 05/19/24 09:31 Oxygen Delivery Method Room Air 05/19/24 09:31 BMI result Body Mass Index 27.3 Tobacco/Smoking Status: Tobacco use Status Tobacco use date assessed 05/19/24 05/19/24 09:37 Patient Tobacco Use Status Never used Tobacco 05/19/24 09:31 e-Cigarette/Vaping Use Never Used 05/19/24 09:37 PHQ-9: PHQ-9 Score PHQ-9: Total score 0 05/19/24 09:38 Thrive Assessment: Date of Thrive Assessment Date Thrive assessed 05/19/24 05/19/24 09:31 Currently or been in a relationship where the following occur: I choose not to answer Const General: cooperative, healthy appearing, comfortable and no acute distress Orientation/consciousness: patient oriented x3 HENMT Head: Yes normocephalic Ears: hearing grossly normal bilaterally, external ears normal, TM's normal bilaterally and EAC's normal General nose exam: Normal external nose present Face and sinus: Yes normal facial exam and Yes sinuses nontender Mouth: Normal oral and palatal mucosa present and tongue normal Throat: Yes posterior oropharynx normal Eyes General: appearance normal, both eyes and all related structures Conjunctivae: conjunctivae normal Pupils: Equal, round and reactive pupils present EOM: EOMs intact bilaterally and No Nystagmus present Neck Neck: Yes normal visual inspection, Yes full ROM and Yes no lymphadenopathy Chest Chest palpation & inspection: normal inspection of the chest Resp Effort & Inspection: normal respiratory effort Auscultation: clear to auscultation bilaterally, no crackles, no rales, no rhonchi, no wheezes and breath sounds present Cardio Rate: regular rate Rhythm: regular rhythm Peripheral pulses: radial pulses present and dorsalis pedis present GI Other: Suprapubic tenderness to palpation Inspection: Yes normal to inspection and No Abdominal wall edema Palpation (GI): Soft to palpation, not firm and nontender Auscultation: normal bowel sounds Rectal Exam - Female: deferred General: Yes no CVA tenderness Back/Spine/Pelvis Back: no CVA tenderness Skin Other: Rotator cuff surgical incision sites clean dry and intact without erythema or drainage General skin exam: no rashes or lesions noted Neuro General: patient oriented x3 Cranial nerves: Yes Equal, round and reactive pupils present, Yes Midline tongue present, Yes Ability to bilaterally elevate shoulders present and No Nystagmus present Gait exam (Neuro): Normal gait present Extrem General: Yes normal to inspection, Yes full ROM, No no pedal edema and No edema Psych Speech and movement: Normal speech and movement present Affect: normal affect Insight: Good insight present (Psych) Judgement: Good judgement present (Psych) Office Procedures Flu Questionnaire Does the patient have a severe egg allergy?: No Immunizations Fluarix Triv [id number] (PF) 45 mcg (15 mcg x 3)/0.5 mL IM syringe Performing Provider: Lisha Osei PA-C [facility] Documented (not given) by: MORTEZA Zhang on 05/19/24 09:38 Reason Not Given: Patient Refused Coding Level of Care Code Est Pt Prev Care 40-64y(41884) Diagnoses Rotator cuff tear, right M75.101 Cervical cancer screening Z12.4 Constipation K59.00 Screening for colorectal cancer Z12.11; Z12.12 Screening for breast cancer Z12.39 Postnasal drip R09.82 Annual physical exam Z00.00 Suprapubic tenderness R10.819 Additional Codes EFREN-7 Assessment Billing - EFREN-7 Assessment Tool: EFREN-7 Assessment 78471 ([id number]) Assessment & Plan Assessment & Plan (1) Rotator cuff tear, right: Code(s): M75.101 - Unspecified rotator cuff tear or rupture of right shoulder, not specified as traumatic Category: Surgical Plan: s/p rotator cuff repair with Dr. Fregoso. Continue to follow with Orthopedics and Physical therapy. Surgical sites are clean dry and intact today without evidence of infection. (2) Cervical cancer screening: Code(s): Z12.4 - Encounter for screening for malignant neoplasm of cervix Category: Medical Plan: Referral placed for gynecology for routine Pap smears. (3) Constipation: Code(s): K59.00 - Constipation, unspecified Category: Medical Plan: Advised to use senna as needed or daily for maintenance. Increase fluid and fiber intake. (4) Screening for colorectal cancer: Code(s): Z12.11 - Encounter for screening for malignant neoplasm of colon; Z12.12 - Encounter for screening for malignant neoplasm of rectum Category: Medical Plan: Referral placed for colonoscopy. (5) Screening for breast cancer: Code(s): Z12.39 - Encounter for other screening for malignant neoplasm of breast Category: Medical Plan: Referral placed for mammogram. (6) Postnasal drip: Code(s): R09.82 - Postnasal drip Category: Medical Plan: Evidence of postnasal drip on exam and patient complaining of slowly taste when she wakes up in the morning that resolves throughout the day. Advised to use saline nasal spray and daily allergy medication. (7) Annual physical exam: Code(s): Z00.00 - Encounter for general adult medical examination without abnormal findings Category: Medical Plan: Patient is not up-to-date on all recommended routine screenings and vaccinations for her age. Referrals were placed today as well as orders for updated blood work. We will follow up in 1 year for annual exam or sooner pending blood work results or if patient has new problems or concerns. (8) Suprapubic tenderness: Code(s): R10.819 - Abdominal tenderness, unspecified site Category: Medical Plan: Pain to palpation of suprapubic area. Ordered for urinalysis for further evaluation. Declines any urinary, gynecological or colorectal concerns. Plan This note was constructed using voice recognition software. While every effort has been made to ensure accuracy and oil and gas well treatment operator, still areas may have been included sometimes these areas may affect the content or meeting of the given symptoms. Total time spent caring for the patient today was 30 minutes. This includes time spent before the visit reviewing the chart, time spent during the visit, and time spent after the visit and documentation. Orders: Orders Complete Blood Count Auto Diff Today Z00.00 - Encounter for general adult medical examination without abnormal findings Comprehensive Met. Panel Today Z00.00 - Encounter for general adult medical examination without abnormal findings Free T4 (Free Thyroxine) Today Z00.00 - Encounter for general adult medical examination without abnormal findings TSH reflex Free T4 Today Z00.00 - Encounter for general adult medical examination without abnormal findings Influenza [id number] Immunization Today Z23 - Encounter for immunization MM tomosynthesis screening BI Today Z12.31 - Encounter for screening mammogram for malignant neoplasm of breast Hemoglobin A1c Today Z00.00 - Encounter for general adult medical examination without abnormal findings Vitamin D 25-OH (D2 and D3) Today Z00.00 - Encounter for general adult medical examination without abnormal findings Vitamin B12 and Folate Today Z00.00 - Encounter for general adult medical examination without abnormal findings UA CC w/rflx Micro + Cult Today R35.89 - Other polyuria Lipid Panel Today Z00.00 - Encounter for general adult medical examination without abnormal findings Referrals PER DIEM NURSE Referral Z12.4 - Encounter for screening for malignant neoplasm of cervix Gastroenterology Referral Z12.11 - Encounter for screening for malignant neoplasm of colon Medications: New cetirizine 10 mg PO DAILY 30 tabs 2RF sennosides (senna) 8.6 mg PO BEDTIME 30 tabs 1RF sennosides (senna) 8.6 mg PO BEDTIME 90 tabs 1RF
[2024-05-19 09:31] VITALS: BP 108/70; PULSE 80; O2SAT 98; BMI 27.3
== END 2024-05-19 10:01 | disposition home or self-care (01) ==
LOC: HO.HMCH 09:28
DX: M75.101 Unspecified rotator cuff tear or rupture of right shoulder, not specified as traumatic (principal); Z12.4 Encounter for screening for malignant neoplasm of cervix; K59.00 Constipation, unspecified; Z12.11 Encounter for screening for malignant neoplasm of colon; Z12.12 Encounter for screening for malignant neoplasm of rectum; Z12.39 Encounter for other screening for malignant neoplasm of breast; R09.82 Postnasal drip; Z00.00 Encounter for general adult medical examination without abnormal findings; R10.819 Abdominal tenderness, unspecified site; Z23 Encounter for immunization

== ENCOUNTER → 2024-05-19 09:27 | Outpatient (BNVA) | payer OTHER, SELFPAY | DX: M75.101 Unspecified rotator cuff tear or rupture of right shoulder, not specified as traumatic (principal); K59.00 Constipation, unspecified; R09.82 Postnasal drip; R10.819 Abdominal tenderness, unspecified site | CPT/HCPCS: 90471; 96127; 99396 ==

== ENCOUNTER 2024-05-20 09:09 | Outpatient (REF) | payer OTHER, SELFPAY ==
[2024-05-20 09:26] LABS: MANUAL DIFF FLAG NO
[2024-05-20 09:40] LABS: Basophils Absolute Auto 0.1 X10*3/uL (0.0-0.2); Basophils Percent Auto 1.2 % (0-2); Eosinophils Absolute Auto 0.3 X10*3/uL (0.0-0.4); Eosinophils Percent Auto 4.9 % (0-4); Hematocrit 39.6 % (37.0-47.0); Hemoglobin 12.7 g/dl (12.0-16.0); Imm Gran Abs Auto 0.01 X10*3/uL (0.00-0.03); Imm Gran Pct Auto 0.2 % (0.0-0.4); Lymphocytes Absolute Auto 2.8 X10*3/uL (1.2-4.9); Lymphocytes Percent Auto 46.9 % (20-40); Mean Corpuscular HGB Conc 32.1 g/dl (31.0-35.0); Mean Corpuscular Hemoglobin 27.3 pg (27.0-33.0); Mean Platelet Volume 10.8 fL (9.4-12.3); Monocytes Absolute Auto 0.5 X10*3/uL (0.1-1.2); Monocytes Percent Auto 8.6 % (2-11); Neutrophils Absolute Auto 2.3 x10*3/uL (2.0-8.3); Neutrophils Percent Auto 38.2 % (45-73); Platelet Count 239 X10*3/uL (160-400); Red Blood Count 4.66 X10*6/uL (4.20-5.50); Red Cell Distribution Width 13.7 % (11.0-16.0)
[2024-05-20 09:57] LABS: Appearance Urine Clear; Color Urine Yellow; Glucose Urine UA Negative (Negative); Leukocyte Esterase Urine Moderate (2+) (Negative); Nitrite Urine Negative (Negative); PH 6.5 (5.0-9.0); UMIC TRIGGER UACC YES; Urine Blood Negative (Negative); Urine Ketones Negative (Negative); Urine Protein Negative (Neg-Trace)
[2024-05-20 10:00] LABS: Estimated Average Glucose 117 mg/dL; Hemoglobin A1C 127.5058 umol/L; Hemoglobin A1c % 5.7 % (<6.0); Total Hemoglobin (HGBA1C) 3268.5402 umol/L
[2024-05-20 10:03] LABS: Bacteria Urine Trace (None Seen); Hyaline Casts Urine 0-2 /LPF (0-2); RBC Urine 0-2 /HPF (0-2); UACC Culture Trigger YES
[2024-05-20 12:12] LABS: Alanine Aminotransferase 21 U/L (0-31); Albumin Level 4.2 g/dL (3.5-5.0); Alkaline Phosphatase 87 U/L (39-117); Anion Gap 13 (12-20); Aspartate Amino Transferase 20 U/L (5-31); Bilirubin Total 0.4 mg/dL (0.0-1.0); Blood Urea Nitrogen 17 mg/dL (9-16); Calcium 9.8 mg/dL (8.4-10.2); Carbon Dioxide 27 mmol/L (22-29); Chloride 106 mmol/L (96-108); Cholesterol 257 mg/dL (<200); Estimated Glomerular Filt Rate > 60; Glucose Random 111 mg/dL (60-115); HDL Cholesterol 45 mg/dL (>40); LDL Cholesterol Calculated 188 mg/dL (<100); Sodium 142 mmol/L (135-145); Total Protein 7.4 g/dL (6.5-8.0); Triglycerides 124 mg/dL (<150)
[2024-05-20 12:48] LABS: Folate 13.7 ng/mL (> or = 4.0); Vitamin B12 635 pg/mL (200-900)
[2024-05-20 12:54] LABS: TSH reflex Free T4 1.16 uIU/mL (0.32-4.0)
[2024-05-24 16:29] LABS: Vitamin D 25-OH, D2 <4 ng/mL; Vitamin D 25-OH, D3 16 ng/mL; Vitamin D 25-OH, Total 16 ng/mL (30-100)
== END 2024-05-20 09:10 | disposition home or self-care (01) ==
LOC: HO.LAB 09:09
DX: Z00.00 Encounter for general adult medical examination without abnormal findings (principal)
CPT/HCPCS: 36415; 80053; 80061; 81001; 81003; 82306; 82607; 82746; 83036; 84439; 84443; 85025; 87086

== ENCOUNTER 2024-05-25 14:21 | Outpatient (AMB) | payer OTHER, SELFPAY ==
[2024-05-25 14:24] VITALS: BMI 27.3
--- NOTE | 2024-05-25 14:24 | A.OFFVIS_ITS ---
Vital Signs 05/25/24 14:24 Height 5 ft 4 in Weight 159 lb BMI 27.3 Intake Visit Reasons: PO RT RTC repair 04/22/24 NE Intake Note: Mark is a 58 year old right hand dominant female who presents to the office today for a RT RTC repair 04/22/24. Patient reports that she is doing well with minimal pain/discomfort Allergies No Known Allergies Allergy (Verified 05/19/24 09:40) HPI HPI PO RT RTC repair 04/22/24 NE: Details: Mark is a 58 year old right hand dominant female who presents to the office today for a RT RTC repair 04/22/24. Patient reports that she is doing well with minimal pain/discomfort PFSH Medical History Migraines Vitamin D deficiency Back pain Presbyopia Insomnia Surgical History Rotator cuff tear, right Hx of cholecystectomy Hx of section Social History Housing: House Are you a primary senior resident care director to a significant other at home: No Do you presently have visiting nurse or other home services: No Alcohol intake: never Patient Tobacco Use Status: Never used Tobacco e-Cigarette/Vaping Use: Never Used Second Hand Smoke Exposure: No service: No Current occupational status: unemployed Sexual orientation: Straight/Heterosexual Gender identity: Female Cognitive needs: No Hearing needs: No Vision needs: Yes Physical Exam Vital Signs: BMI result Body Mass Index 27.3 Extrem Other: Passive external rotation to 20 degrees and passive abduction to 70. Forward flexion to 100. Portals clean dry and intact Assessment & Plan Assessment & Plan (1) S/P rotator cuff repair: Code(s): Z98.890 - Other specified postprocedural states Category: Surgical Plan: Status post subscapularis and supraspinatus repair. Doing well. Continue therapy. May discontinue sling. No lifting. Large rotator cuff repair protocol. Follow up 6 weeks. Coding Level of Care Code Global (47427) Diagnoses S/P rotator cuff repair Z98.890
== END 2024-05-25 14:43 | disposition home or self-care (01) ==
LOC: HO.HOS 14:21
PROVIDERS: Visit Provider Orthopaedic Surgery
DX: Z98.890 Other specified postprocedural states (principal)
CPT/HCPCS: 99024

== ENCOUNTER → 2024-05-25 14:21 | Outpatient (BNVA) | payer OTHER, SELFPAY | PROVIDERS: Visit Provider Orthopaedic Surgery | DX: Z47.89 Encounter for other orthopedic aftercare (principal); Z98.890 Other specified postprocedural states | CPT/HCPCS: 99212 ==

== ENCOUNTER 2024-06-25 15:37 | Outpatient (REF) | payer OTHER, SELFPAY ==
--- NOTE | ~2024-06-25 | MM_ITS ---
EXAMINATION: MM SCREENING DIGITAL BREAST TOMOSYNTHESIS, BILATERAL CLINICAL INFORMATION: Screening. Asymptomatic. COMPARISON: Mammography: Comparison is made with available priors TECHNIQUE: Digital breast mammography with tomosynthesis is performed in both the craniocaudal and mediolateral oblique views along with computer-aided detection (CAD). FINDINGS: There are scattered areas of fibroglandular density (ACR BI-RADS breast composition Category b). Right: There are no significant masses, abnormal calcifications, or other abnormalities. Left: Asymmetry retroareolar region middle depth on CC view. No suspicious calcifications or other abnormal findings. MM/MM tomosynthesis screening BI IMPRESSION: Additional imaging is recommended ASSESSMENT: BI-RADS BI-RADS 0 - Incomplete: Needs additional Imaging. RECOMMENDATION: 1. Additional views of the left breast 2. Targeted ultrasound if warranted after review of the additional views. 3. Radiology department staff will contact the patient for additional imaging. Additional Imaging required This examination should not preclude the clinical evaluation of a suspicious palpable abnormality. This patient's information was entered into a reminder system with a target due date for their next mammogram. Electronically signed by: Brea Kim DO 07/01/2024 03:32 PM O[facility]
== END 2024-06-25 15:38 | disposition home or self-care (01) ==
LOC: HO.MAMMO 15:37
DX: Z12.31 Encounter for screening mammogram for malignant neoplasm of breast (principal)
CPT/HCPCS: 77063; 77067

== ENCOUNTER → 2024-06-25 16:00 | Outpatient (BNV) | payer OTHER, SELFPAY | PROVIDERS: Visit Provider Internal Medicine | DX: Z12.31 Encounter for screening mammogram for malignant neoplasm of breast (principal) | CPT/HCPCS: 77063; 77067 ==

== ENCOUNTER 2024-07-06 14:42 | Outpatient (AMB) | payer OTHER, SELFPAY ==
--- NOTE | 2024-07-06 14:49 | MHC.OFFVIS ---
Vital Signs 07/06/24 14:50 Height 5 ft 4 in Weight 159 lb BMI 27.3 Intake Visit Reasons: PO RT RTC repair 04/22/24 NE-6 WK follow up Intake Note: Mark is a 58 year old right hand dominant female who presents to the office today for a RT RTC (subscapularis and supraspinatus) repair 04/22/24. Allergies No Known Allergies Allergy (Verified 05/19/24 09:40) HPI HPI PO RT RTC repair 04/22/24 NE-6 WK follow up: Details: Almost 3 months status post rotator cuff repair. She is doing well. She feels that she is still stiff but since she is improving rapidly. PFSH Medical History Migraines Vitamin D deficiency Back pain Presbyopia Insomnia Surgical History Rotator cuff tear, right Hx of cholecystectomy Hx of section Social History Housing: House Are you a primary care transition coordinator to a significant other at home: No Do you presently have visiting nurse or other home services: No Alcohol intake: never Patient Tobacco Use Status: Never used Tobacco e-Cigarette/Vaping Use: Never Used Second Hand Smoke Exposure: No service: No Current occupational status: unemployed Sexual orientation: Straight/Heterosexual Gender identity: Female Cognitive needs: No Hearing needs: No Vision needs: Yes Physical Exam Vital Signs: BMI result Body Mass Index 27.3 Extrem Other: /hip pocket Assessment & Plan Assessment & Plan (1) S/P rotator cuff repair: Code(s): Z98.890 - Other specified postprocedural states Category: Surgical Plan: Joana is doing well status post large rotator cuff repair. She needs to continue physical therapy as she is still slightly stiff. I discussed this with her. A prescription was written. She can not work at this time. Follow up in 3 months. Orders: Orders PT Evaluation and Treatment Today Z98.890 - Other specified postprocedural states Coding Level of Care Code Global (43540) Diagnoses S/P rotator cuff repair Z98.890
[2024-07-06 14:50] VITALS: BMI 27.3
== END 2024-07-06 15:39 | disposition home or self-care (01) ==
PROVIDERS: Visit Provider Orthopaedic Surgery
DX: Z98.890 Other specified postprocedural states (principal)
CPT/HCPCS: 99024

== ENCOUNTER → 2024-07-06 14:42 | Outpatient (BNVA) | payer OTHER, SELFPAY | PROVIDERS: Visit Provider Orthopaedic Surgery | DX: M25.611 Stiffness of right shoulder, not elsewhere classified (principal); Z47.89 Encounter for other orthopedic aftercare; Z98.890 Other specified postprocedural states | CPT/HCPCS: 99212 ==

== ENCOUNTER 2024-07-21 10:00 | Outpatient (RCR) | payer OTHER, SELFPAY ==
--- NOTE | 2024-05-15 10:46 | MHC.PT.EP ---
[facility] [place] Office [place] Office [place] Office [address] Rodo Vergara [address] [phone] F: [phone] F: [phone] F: [phone] F: [phone] Physical Therapy Plan of Care Date of Evaluation: 05/15/24 Date of Surgery: 04/22/24 Diagnosis: Rotator cuff repair - 04/22/24 Assessment: Patient is a 58 year old R handed female who presents with s/s consistent with R rotator cuff repair, R shoulder pain. She is currently not working but does enjoy staying active around the hosue and in the community. Patient past medical history includes migraines and back pain. Current impairments include pain, posture, ROM, strength, activity tolerance and functional mobility. Functional limitations include decreased ability to perform all activities with upper extremity. I with use of sling. Patient is motivated with good rehab potential. Skilled PT will address impairments and functional limitations in order to achieve goals. Frequency and Duration: The patient will be seen 2x/week for 8 weeks Short Term Goals: I with HEP - 2 weeks PROM flexion to 120, abduction to 120 - 3 weeks PROM ER to 15, IR to 40 - 3 weeks Able to sleep undisturbed by pain - 4 weeks Personnel Research Psychologist Goals: SPADI - 40/130 or less - 8 weeks Initiated strength programm - 6 weeks Full PROM - 8 weeks Able to reach overhead pain free AROM - 8 weeks Treatment Plan: Modalities to reduce pain, spasms and effusion. Manual therapy to restore motion and function. Therapeutic exercise to improve strength and flexibility. Neuromuscular re-education for posture and balance. Therapeutic activities to return to functional activities of daily living. Electronically signed by: Vargas Farnsworth, PT Please sign and return to therapist. Thank you for your referral.
--- NOTE | 2024-10-09 12:42 | MHC.PT.DC ---
[facility] [place] Office [place] [facility] [place] Office [address] Rodo Vergara [address] [phone] F: [phone] F: [phone] F: [phone] F: [phone] Physical Therapy Discharge Report Diagnosis: Rotator cuff repair - 04/22/24 Date of Surgery: 04/22/24 Date of Evaluation: 05/15/24 Date of Discharge: 08/20/24 Treatments to Date: 17 Cancellations to Date: No Shows to Date: Discharge Status: Independent with HEP Patient Elected to Stop Discharge Summary: 07/21; Pt fatigued after exs. Pt has 1 meri appt and then will be gone for 1 month. 07/16; Pt fatigued after exs. Pt conts to need v/c to perform exs properly. 07/14; Pt s/p 12 weeks. Pt needs v/c with proper mechanics with exs. Pt substitutes body and hand with exs. 07/10/24: much improved ER today. continued edu on mechanics and HEP. pt does have difficulty with carryover on mechanics and notes ER is really tough and she doesn't like to do it. 07/08/24: ER to 39 today. educated her on importance of continued progress and performance of HEP. flexion same as prior. 06/25/24: pt has been feeling better overall with skilled PT. PROM ER to 52. Flexion AAROM to 118. 06/23/24: pt progressing. she has been improving mechanics but still in need of significant cues. better carryover today. ROM gains noted above. 06/16/24: pt progressing overall. ROM improvements continue. Pt does have poor form and has difficulty following exercise cues. 06/12/24: ER progressing nicely. educated her again on continuing to pursue ROM gains. 06/10/24: good ROM improvements today. educated on importance of HEP/stretching. continue to progress as tolerated. 06/05/24: pt progressing slowly with ROM. educated her thoroughly on importance of HEP for ER and flexion ROM improvement. 06/03; Pt needed v/c with exs and still needed cues. Pt unable to perform pulleys without 6 breaks. Pt resisted passive flexion with opp hand. Discussed importance of exs 2/3 x a day. Pt is 6 weeks today and ROM is very limited. 05/29/24: pt progress stalled with ROM today except abd. we will attempt to PROM further Nv. 05/27/24: added submax/subpain isometrics. Flexion to 95, abd to 70, ER to 24. Continue to progress as tolerated. HEP updated with isometrics. 05/22/24: pt progressing well. PROM flexion to 90, abd to 60, ER to 11. 05/20; Pt needed v/c with exs and demonstrations and encouragement to perform exs. Pt was shrugging with most exs and instructed her to DC it. Pt not receptive for passive stretching, but needed pushing to receive stretching. Passive flexion 75, abd 45, ext rot 0 degrees. Patient is a 58 year old R handed female who presents with s/s consistent with R rotator cuff repair, R shoulder pain. She is currently not working but does enjoy staying active around the house and in the community. Patient past medical history includes migraines and back pain. Current impairments include pain, posture, ROM, strength, activity tolerance and functional mobility. Functional limitations include decreased ability to perform all activities with upper extremity. I with use of sling. Patient is motivated with good rehab potential. Skilled PT will address impairments and functional limitations in order to achieve goals. Electronically signed by: Vargas Farnsworth, PT Please sign and return to therapist. Thank you for your referral.
== END 2024-10-09 12:42 | disposition home or self-care (01) ==
LOC: HO.PTCHIC 10:00
PROVIDERS: Visit Provider Physician Assistant
DX: M75.101 Unspecified rotator cuff tear or rupture of right shoulder, not specified as traumatic (principal)
CPT/HCPCS: 97110; 97140; 97162

== ENCOUNTER 2024-07-23 11:41 | Outpatient (REF) | payer OTHER, SELFPAY ==
--- NOTE | ~2024-07-23 | MM_ITS ---
EXAMINATION: MM DIAGNOSTIC DIGITAL BREAST TOMOSYNTHESIS, LEFT Limited left breast ultrasound. CLINICAL INFORMATION: Call back from screening for asymmetry in the left retroareolar region on CC view. COMPARISON: Mammography: made with available prior examinations. TECHNIQUE: Digital breast tomosynthesis is performed in both the craniocaudal and mediolateral oblique views along with computer-aided detection (CAD). Synthesized 2D images are generated from the tomosynthesis. Limited left breast ultrasound. FINDINGS: There are scattered areas of fibroglandular density (ACR BI-RADS breast composition Category b). Asymmetry in the retroareolar region middle depth persist on additional imaging projections. No suspicious calcifications or other abnormal findings. Targeted color Doppler ultrasound scanning in the retroareolar region from 10-2 o'clock demonstrates normal fibroglandular breast tissue. MM/MM tomosynthesis added views L IMPRESSION: Asymmetry retroareolar region middle depth on CC view without sonographic correlate. Recommend 6 month follow-up left breast mammogram for further evaluation of stability. ASSESSMENT: BI-RADS BI-RADS 3 - Probably benign finding(s) - 6 month follow-up suggested RECOMMENDATION: 6 Month F/U Results were provided to the patient at time of visit by the technologist. This patient's information was entered into a reminder system with a target due date for their next mammogram. Electronically signed by: Brea Kim DO 07/23/2024 12:52 PM [facility]
== END 2024-07-23 11:42 | disposition home or self-care (01) ==
LOC: HO.MAMMO 11:41
DX: N64.89 Other specified disorders of breast (principal); R92.322 Mammographic fibroglandular density, left breast
CPT/HCPCS: 76642; 77061; 77065

== ENCOUNTER → 2024-07-23 12:30 | Outpatient (BNV) | payer OTHER, SELFPAY | PROVIDERS: Visit Provider Internal Medicine | DX: R92.2 Inconclusive mammogram (principal); R92.322 Mammographic fibroglandular density, left breast | CPT/HCPCS: 76642; 77061; 77065 ==

== ENCOUNTER 2024-10-08 14:24 | Outpatient (AMB) | payer OTHER, SELFPAY ==
[2024-10-08 14:45] VITALS: BMI 27.3
--- NOTE | 2024-10-08 14:45 | MHC.OFFVIS ---
Vital Signs 10/08/24 14:45 Height 5 ft 4 in Weight 159 lb BMI 27.3 Intake Visit Reasons: OV - RT RTC repair 04/22/24 NE Intake Note: Mark is a 58 year old right hand dominant female who presents to the office today for a follow up s/p RT RTC (subscapularis and supraspinatus) repair 04/22/24. States she continues to have pain and discomfort on and off through out the day with activities of daily living. Allergies No Known Allergies Allergy (Verified 10/09/24 16:10) HPI HPI OV - RT RTC repair 04/22/24 NE: Details: Mark is a 58 year old right hand dominant female who presents to the office today for a follow up s/p RT RTC (subscapularis and supraspinatus) repair 04/22/24. States she continues to have mild pain and discomfort on and off through out the day with activities of daily living. She has returned to work. [facility] Medical History Migraines Vitamin D deficiency Back pain Presbyopia Insomnia Surgical History Rotator cuff tear, right Hx of cholecystectomy Hx of section Social History Housing: House Are you a primary clinical care manager to a significant other at home: No Do you presently have visiting nurse or other home services: No Alcohol intake: never Patient Tobacco Use Status: Never used Tobacco e-Cigarette/Vaping Use: Never Used Second Hand Smoke Exposure: No service: No Current occupational status: unemployed Sexual orientation: Straight/Heterosexual Gender identity: Female Cognitive needs: No Hearing needs: No Vision needs: Yes (Glasses) Physical Exam Vital Signs: BMI result Body Mass Index 27.3 Extrem Other: Full ROM with no pain negative EC negative lift off Neg H/N Assessment & Plan Assessment & Plan (1) S/P rotator cuff repair: Code(s): Z98.890 - Other specified postprocedural states Category: Surgical Plan: s/p RTC repair doing well. Osiris return to work ( she has been working). Heavy overhead lifting discouraged. Coding Level of Care Code Est Pt Level 3 (86377) Diagnoses S/P rotator cuff repair Z98.890
== END 2024-10-08 15:03 | disposition home or self-care (01) ==
LOC: HO.HOS 14:25
PROVIDERS: Visit Provider Orthopaedic Surgery
DX: Z47.89 Encounter for other orthopedic aftercare (principal); M75.121 Complete rotator cuff tear or rupture of right shoulder, not specified as traumatic
CPT/HCPCS: 99212

== ENCOUNTER → 2024-10-08 14:24 | Outpatient (BNVA) | payer OTHER, SELFPAY | PROVIDERS: Visit Provider Orthopaedic Surgery | DX: Z98.890 Other specified postprocedural states (principal) | CPT/HCPCS: 99212 ==

== ENCOUNTER 2024-10-09 15:43 | Outpatient (AMB) | payer OTHER, SELFPAY ==
--- NOTE | 2024-10-09 16:00 | A.OFFPC_ITS ---
Vital Signs 10/09/24 16:02 Height 5 ft 4 in Weight 162 lb 4 oz BMI 27.8 BP 122/72 Blood Pressure Location Rt brachial Position Sitting Pulse 67 Pulse Source Pulse Oximeter Temp 97.5 F Temp Source Temporal Artery Scan Pulse Oximetry (%) 98 Oxygen Delivery Method Room Air Intake Visit Reasons: cholesterol follow up Intake Note: Patient is here to follow up on Cholesterol. Brush Trimming Machine Setter Required: Yes Brush Trimming Machine Setter Language: Email Campaign Manager Name: Bessy (sister) Information Interpreted: non-clinical & clinical (pt decline crown wheel assembler service prefer sister to translate) Power Press Tender: Present Accompanied by: Sister Allergies No Known Allergies Allergy (Verified 10/09/24 16:10) Medication List - Last Reconciled 10/09/24 by Lisha Osei PA-C cetirizine 10 mg PO DAILY cholecalciferol (vitamin D3) 25 mcg PO DAILY ibuprofen 800 mg PO TID PRN NS sennosides (senna) 8.6 mg PO BEDTIME Tobacco use date assessed: 10/09/24 Dental Screening Dental Screen Date: 10/09/24 Did you have a dental visit in the last 12 months?: Yes Did you have a dental problem in the last 6 months where you did not have access to dental care?: No Was dental information given to patient?: Patient has dentist HPI cholesterol follow up HPI Details 59-year-old female with past medical his tory of migraines last seen 04/2024 coming in for follow up. The patient is a 59-year-old female presenting for a follow-up on hyperlipidemia. Recent labs from April show elevated cholesterol but no anemia, and normal liver and kidney functions. There is no evidence of diabetes. She reported a dietary intake high in saturated fats, such as butter and fried foods. Family history includes heart attacks in two brothers, though she has no personal cardiovascular events. Additionally, the patient reports chronic lower back pain, which has not improved with [id number] pain medication. [facility] Medical History Migraines Vitamin D deficiency Back pain Presbyopia Insomnia Surgical History Rotator cuff tear, right Hx of cholecystectomy Hx of section Social History Housing: House Are you a primary director day care center to a significant other at home: No Do you presently have visiting nurse or other home services: No Alcohol intake: never Patient Tobacco Use Status: Never used Tobacco e-Cigarette/Vaping Use: Never Used Second Hand Smoke Exposure: No service: No Current occupational status: unemployed Sexual orientation: Straight/Heterosexual Gender identity: Female Cognitive needs: No Hearing needs: No Vision needs: Yes (Glasses) Questionnaire PHQ-9 Over the last 2 weeks, how often have you been bothered by any of the following problems? 1. Little interest or pleasure in doing things: not at all 2. Feeling down, depressed, or hopeless: not at all 3. Trouble falling or staying asleep, or sleeping too much: not at all 4. Feeling tired or having little energy: not at all 5. Poor appetite or overeating: not at all 6. Feeling bad about yourself - or that you are a failure or have let yourself or your family down: not at all 7. Trouble concentrating on things, such as reading the newspaper or watching television: not at all 8. Moving or speaking so slowly that other people could have noticed. Or the opposite - being so fidgety or restless that you have been moving around a lot more than usual: not at all 9. Thoughts that you would be better off or of hurting yourself in some way: not at all Total score: 0 Depression Screening Interpretation: Negative Depression Screening Done: Yes Source: Developed by Drs. Herminio Starr, Dorie Cheng, Matthew Salazar and colleagues, with an educational yran from [employer]. Thrive Questionnaire Date Thrive assessed: 10/09/24 AUDIT C Alcohol Use Questionnaire (AUDIT-C) 1. How often do you have a drink containing alcohol?: Never Total Score: 0 EFREN-7 AMB Questionnaire EFREN-7 Date EFREN - 7 assessed: 10/09/24 Feeling nervous, anxious, or on edge: 0 = Not at all Not being able to stop or control worryin = Not at all Worrying too much about different things: 0 = Not at all Trouble relaxin = Not at all Being so restless that it is hard to sit still: 0 = Not at all Becoming easily annoyed or irritable: 0 = Not at all Feeling afraid as if something awful might happen: 0 = Not at all Total EFREN-7 score (0-4 normal; 5-9 mild; 10-14 moderate; 15-21 severe): 0 Source: Developed by Drs. Herminio Starr, Dorie Cheng, Matthew Salazar and colleagues, with an educational ryan from [employer]. Review of Systems Const Denies body aches, Denies chills, Denies fever(s), Denies headache(s) and Denies poor appetite Eyes Reports no additional complaints ENT Denies dysphagia, Denies dizziness, Denies headache(s) and Denies odynophagia Card Denies chest pain, Denies syncope, Denies edema, Denies irregular heart rhythm, Denies lightheadedness and Denies dyspnea Resp Denies cough and Denies dyspnea GI Denies abdominal pain, Denies constipation, Denies dysphagia, Denies diarrhea, Denies nausea, Denies odynophagia and Denies vomiting Reports no additional complaints Musc Reports no additional complaints and Denies abnormal gait Skin/Breast Reports system reviewed and no additional complaints, except as documented Neuro Denies abnormal gait, Denies dizziness, Denies syncope and Denies headache(s) Psych Reports no additional complaints Physical exam (Primary Care) Vital Signs: Last Vital Signs Temp 97.5 F 10/09/24 16:02 Pulse 67 10/09/24 16:02 BP 122/72 10/09/24 16:02 Pulse Ox 98 10/09/24 16:02 Oxygen Delivery Method Room Air 10/09/24 16:02 BMI result Body Mass Index 27.8 Tobacco/Smoking Status: Tobacco use Status Tobacco use date assessed 10/09/24 10/09/24 16:09 Patient Tobacco Use Status Never used Tobacco 10/09/24 16:09 e-Cigarette/Vaping Use Never Used 10/09/24 16:09 PHQ-9: PHQ-9 Score PHQ-9: Total score 0 10/09/24 16:09 Depression Screening Interpretation: Negative Thrive Assessment: Date of Thrive Assessment Date Thrive assessed 10/09/24 10/09/24 16:09 Const General: cooperative, healthy appearing, comfortable and no acute distress Orientation/consciousness: patient oriented x3 HENMT Head: Yes normocephalic Ears: hearing grossly normal bilaterally General nose exam: Normal external nose present Eyes General: appearance normal, both eyes and all related structures Conjunctivae: conjunctivae normal Neck Neck: Yes full ROM and Yes no lymphadenopathy Resp Effort & Inspection: normal respiratory effort Auscultation: clear to auscultation bilaterally, no crackles, no rales, no rhonchi and no wheezes Cardio Rate: regular rate Rhythm: regular rhythm Skin General skin exam: no rashes or lesions noted Neuro General: patient oriented x3 Gait exam (Neuro): Normal gait present Extrem General: Yes normal to inspection, Yes full ROM and No edema Psych Affect: normal affect Attitude: cooperative Insight: Good insight present (Psych) Judgement: Good judgement present (Psych) Coding Level of Care Code Est Pt Level 3 (49134) Diagnoses Hypercholesterolemia E78. Assessment & Plan Assessment & Plan (1) Hypercholesterolemia: Code(s): E78.00 - Pure hypercholesterolemia, unspecified Category: Medical Plan: Avoid foods that are high in cholesterol such as red meat, fried foods, eggs and baked goods. Triglyceride goal of less than 150 and LDL goal of less than 130. Plan to start on simvastatin 5 mg with repeat labs in 3 months before next appointment. Patient declines to try dietary lifestyle modification would like to start with medication instead. Plan To manage hyperlipidemia, I initiated treatment with simvastatin, emphasizing the need for dietary modifications to reduce cholesterol intake. Blood work will be repeated in December to monitor lipid levels. Additionally, I prescribed a muscle relaxant for her lower back pain, instructing nighttime use with food to enhance tolerance. Follow-up is scheduled in three months for a comprehensive reevaluation. Educational materials regarding dietary control of hyperlipidemia were provided in [place]. This note was constructed using voice recognition software. While every effort has been made to ensure accuracy and test lead application testing, still areas may have been included sometimes these areas may affect the content or meeting of the given symptoms. Total time spent caring for the patient today was 20 minutes. This includes time spent before the visit reviewing the chart, time spent during the visit, and time spent after the visit and documentation. Patient was informed and verbally consented to the use of an ambient scribe for clinic note documentation during this visit. Orders: Orders Lipid Panel 3 Months E78.00 - Pure hypercholesterolemia, unspecified Comprehensive Met. Panel 3 Months Z00.00 - Encounter for general adult medical examination without abnormal findings Medications: New simvastatin 5 mg PO BEDTIME 90 tabs 1RF cyclobenzaprine 5 mg PO BEDTIME 20 tabs 0RF Refilled ibuprofen 800 mg PO TID PRN 90 tabs 0RF for pain NS
[2024-10-09 16:02] VITALS: BP 122/72; PULSE 67; TEMP 36.4; O2SAT 98; BMI 27.8
--- OUTSIDE RECORDS SUMMARY | 2024-10-09 17:26 | XMS_ITS | Clinical Summary ---
Author Organization [address] Address [address] [place] [address] Care Team Providers Care Bulk Plant Agent Name Role Phone No, Pcp (Do Not Change Name) Primary Care Provid er Unavailable Allergies Active Allergy Reactions Criticality Noted Date Comments Aspirin 02/23/2015 Medications No known medications Immunizations Name Administration Dates Next Due Rho(D)-IG 02/24/2015 Social History Tobacco Use Types Packs/Day Years Used Date Smoking Tobacco: Never Assessed Comments Unknown Sex and Gender Information Value Date Recorded Sex Assigned at Not on file Legal Sex Female 9:46 AM EST Gender Identity Not on file Sexual Orientation Not on file Last Filed Vital Signs Vital Sign Reading Time Taken Comments Blood Pressure 119/74 06/19/2017 2:36 AM EST Pulse 79 06/19/2017 2:36 AM EST Temperature 36.9 ??C (98.4 ??F) 06/19/2017 2:36 AM ES T Respiratory Rate 18 06/19/2017 2:36 AM EST Oxygen Saturation 97% 06/19/2017 2:36 AM EST Inhaled Oxygen Concentration - - Weight - - Height - - Body Mass Index - - Plan of Treatment Health Maintenance Due Date Last Done Comments HIV screening 1980 Hepatitis C screening 1985 Tetanus adult (Td q 10,TDAP once) 1987 Cervical cancer screening 1988 Breast cancer screening 2007 Lipid disorder screening 2007 Colon cancer screening, Colonoscopy 2012 Shingles vaccine (Shingrix) (1 of 2 - Shingrix (RZV) 2 Dose Standard Series) 2017 Diabetes screening 02/23/2018 02/23/2015 Influenza vaccine 02/20/2024 Covid-19 vaccine series (1 - 2023-25 season) 2024 Pneumococcal Vaccine (50+ ye ars) (1 of 1 - PCV) 2032 RSV Immunization (1 - 1-dose 75+ series) 2042 Meningococcal Vaccine Aged Out No melony nick eligible based on patient's age to complete this topic Pneumococcal Vaccine (2 - 49 years) Aged Out No longer eligible b ased on patient's age to complete this topic Procedures Procedure Name Priority Date/Time Associated Diagnosis Comments BASIC METABOLIC PANEL STAT 02/23/2015 11:26 PM EDT from Last 3 Months or Most Recently Relevant to Health Maintenance Results * (ABNORMAL) Basic metabolic panel (02/23/2015 11:26 PM EDT) Glucose 128(H) 70 - 100 mg/dL [facility] BUN 16 7 - 20 mg/dL [facility] Creatinine 0.7 0.5 - 1.2 mg/dL [facility] BUN/Creatinine Ratio 22.9(H) 10.0 - 20.0 [facility] Anion Gap 16 7 - 16 [facility] CO2 19.3(L) 22.0 - 30.0 mmol/L [facility] Chloride 103 96 - 106 mmol/L [facility] Sodium 138 135 - 145 mmol/L [facility] Potassium 4.2 3.3 - 5.0 mmol/L [facility] Calcium 9.0 8.8 - 10.2 mg/dL [facility] Blood specimen (specimen) 02/23/2015 11:26 PM EDT Narrative [facility] - 02/24/2015 12:05 AM EDT HIS Add-on test: HCGQ 02/23/2015 ??23:42 JU us Fernando Espino MD LAB BLOOD ORDERABLES Final Res ult [facility] [address] [place] [id number] from Last 3 Months or Most Recently Relevant to Health Maintenance Insurance [id number] MEDICAID [id number] MEDICAID [id number] MEDICAID [id number] MEDICAID Care Teams Bulk Plant Agent Relationship Specialty Start Date End Date No, Pcp (Do Not Change Name) PCP - General 02/23/15
--- OUTSIDE RECORDS SUMMARY | 2024-10-09 17:26 | XMS_ITS | Clinical Summary ---
Author Organization [facility] Address [address] [place] [address] Care Team Providers Care Police Manager Name Role Phone Pcp, No Primary Care Provider Unavailabl e Allergies No known active allergies Medications Medication Sig Dispensed Refills Start Date End Date Status acetaminophen-codein e (TYLENOL #3) 300-30 MG per tablet Take 1-2 tablets by mouth 4 times daily (every 6 hours) as needed for severe pain. Max Daily Amount: 8 tablets 8 tablet 04/11/2022 Active amoxicillin-clavulan ate (AUGMENTIN) 875-125 MG per tablet Take 1 tablet by mouth 2 (two) times a day. Take as directed or until you run out 20 tablet 04/11/2022 Active Social History Tobacco Use Types Packs/Day Years Used Date Smoking Tobacco: Never Smokeless Tobacco: Never Alcohol Use Standard Drinks/Week Comments Not Currently 0 (1 standard drink = 0.6 oz pur e alcohol) Sex and Gender Information Value Date Recorded Sex Assigned at Not on file Gender Identity Not on file Sexual Orientation Not on file Last Filed Vital Signs Vital Sign Reading Time Taken Comments Blood Pressure 168/88 04/11/2022 5:08 AM EDT Pulse 87 04/10/2022 10:49 PM EDT Temperature 36.7 ??C (98.1 ??F) 04/10/2022 10:49 PM E DT Respiratory Rate 18 04/10/2022 10:49 PM EDT Oxygen Saturation 98% 04/10/2022 10:49 PM EDT Inhaled Oxygen Concentration - - Weight 75.5 kg (166 lb 7.2 oz) 04/10/2022 10:49 PM EDT Height 162.6 cm (5' 4 ) 04/10/2022 10:49 PM EDT Body Mass Index 28.57 04/10/2022 10:49 PM EDT Plan of Treatment Health Maintenance Due Date Last Done Comments Hepatitis C Virus Screening 1967 HIV Screening 1980 DTaP/Tdap/Td Vaccines (1 - Tdap) 1986 Hepatitis B Vaccines (1 of 3 - 19+ 3-dose series) 1986 Pap Smear (Ages 21-65) 1988 Mammogram 2007 Colonoscopy 2012 Pneumococcal Vaccines 50+ (1 of 1 - PCV) 2017 Zoster (Shingles) Vaccine (1 of 2) 2017 Influenza Vaccine 02/20/2024 COVID-19 Vaccine (1 - 2023-2 5 season) 2024 Pneumococcal Vaccine: Pediat radha (0-5 Years) and At-Risk Patients (6 to 49 Years) Aged Out No longer eligible b ased on patient's age to complete this topic Care Teams Police Manager Relationship Specialty Start Date End Date Pcp, No PCP - General General Medicine 04/10/22
== END 2024-10-09 16:27 | disposition home or self-care (01) ==
LOC: HO.HMCH 15:44
DX: E78.00 Pure hypercholesterolemia, unspecified (principal)

== ENCOUNTER → 2024-10-09 15:43 | Outpatient (BNVA) | payer OTHER, SELFPAY | DX: E78.00 Pure hypercholesterolemia, unspecified (principal) | CPT/HCPCS: 99212 ==

== ENCOUNTER 2025-04-07 15:02 | Outpatient (AMB) | payer OTHER, SELFPAY ==
[2025-04-07 15:07] VITALS: BP 140/78; PULSE 78; O2SAT 98; BMI 27.8
--- NOTE | 2025-04-07 15:07 | A.OFFPC_ITS ---
Vital Signs 04/07/25 15:07 04/07/25 15:32 Height 5 ft 4 in Weight 162 lb 4 oz BMI 27.8 BP 140/78 H 126/78 Blood Pressure Location Lt brachial Lt brachial Position Sitting Sitting Pulse 78 Pulse Source Pulse Oximeter Pulse Oximetry (%) 98 Intake Visit Reasons: 3 month f/u Flat Screen Worker Required: Yes Flat Screen Worker Language: Serbian Accompanied by: Self / Same As Patient Allergies No Known Allergies Allergy (Verified 04/07/25 15:22) Medication List - Last Reconciled 04/07/25 by Lisha Osei PA-C No Known Home Meds Tobacco use date assessed: 10/09/24 Dental Screening Dental Screen Date: 04/07/25 Did you have a dental visit in the last 12 months?: Yes Did you have a dental problem in the last 6 months where you did not have access to dental care?: No Was dental information given to patient?: Patient has dentist HPI 3 month f/u HPI Details 59-year-old female with past medical his tory of migraines and hypercholesterolemia last seen 09/2024 coming in for follow up. She tells us today she did not take the Simvastatin as she has been feeling good and did not feel she needed it. She has not adjusted dietary or lifestyle in the meantime. She is complaining of intermittent upper back pain that comes and goes at random and denies any chest pain. She does not identify any inciting event and is not currently having any pain. Typically which she will take Tylenol which resolves the pain. She does not have any worsening pain with exercise. [facility] Medical History Migraines Vitamin D deficiency Back pain Presbyopia Insomnia Surgical History Rotator cuff tear, right Hx of cholecystectomy Hx of section Social History Housing: House Are you a primary career center director to a significant other at home: No Do you presently have visiting nurse or other home services: No Alcohol intake: never Patient Tobacco Use Status: Never used Tobacco e-Cigarette/Vaping Use: Never Used Second Hand Smoke Exposure: No service: No Current occupational status: unemployed Sexual orientation: Straight/Heterosexual Gender identity: Female Cognitive needs: No Hearing needs: No Vision needs: Yes (Glasses) Questionnaire Thrive Questionnaire Date Thrive assessed: 10/09/24 EFREN-7 AMB Questionnaire EFREN-7 Date EFREN - 7 assessed: 10/09/24 Source: Developed by Drs. Herminio Starr, Dorie Cheng, Matthew Salazar and colleagues, with an educational ryan from [employer]). Review of Systems Const Denies body aches, Denies chills, Denies fever(s), Denies headache(s) and Denies poor appetite Eyes Reports no additional complaints ENT Denies dizziness and Denies headache(s) Card Denies chest pain, Denies syncope, Denies edema, Denies lightheadedness and Denies dyspnea Resp Denies cough and Denies dyspnea GI Denies abdominal pain, Denies nausea and Denies vomiting Reports no additional complaints Musc Reports no additional complaints and Denies abnormal gait Skin/Breast Reports system reviewed and no additional complaints, except as documented Neuro Denies abnormal gait, Denies dizziness, Denies syncope and Denies headache(s) Psych Reports no additional complaints Physical exam (Primary Care) Vital Signs: Last Vital Signs Pulse 78 04/07/25 15:07 BP 126/78 04/07/25 15:32 Pulse Ox 98 04/07/25 15:07 BMI result Body Mass Index 27.8 Tobacco/Smoking Status: Tobacco use Status Tobacco use date assessed 10/09/24 04/07/25 15:13 Patient Tobacco Use Status Never used Tobacco 04/07/25 15:13 e-Cigarette/Vaping Use Never Used 04/07/25 15:13 Thrive Assessment: Date of Thrive Assessment Date Thrive assessed 10/09/24 04/07/25 15:13 Const General: cooperative, healthy appearing, comfortable and no acute distress Orientation/consciousness: patient oriented x3 HENMT Head: Yes normocephalic Ears: hearing grossly normal bilaterally General nose exam: Normal external nose present Eyes General: appearance normal, both eyes and all related structures Conjunctivae: conjunctivae normal Neck Neck: Yes full ROM and Yes no lymphadenopathy Resp Effort & Inspection: normal respiratory effort Auscultation: clear to auscultation bilaterally, no crackles, no rales, no rhonchi and no wheezes Cardio Rate: regular rate Rhythm: regular rhythm Back/Spine/Pelvis Other: No tenderness to palpation over entirety of spine or paraspinal muscles. Left paraspinal muscles are tight/stiff Skin General skin exam: no rashes or lesions noted Neuro General: patient oriented x3 Gait exam (Neuro): Normal gait present Extrem General: Yes normal to inspection, Yes full ROM and No edema Psych Affect: normal affect Attitude: cooperative Insight: Good insight present (Psych) Judgement: Good judgement present (Psych) Coding Level of Care Code Est Pt Level 3 (11671) Diagnoses Hypercholesterolemia E78.00 Upper back pain M54.9 Assessment & Plan Assessment & Plan (1) Hypercholesterolemia: Code(s): E78.00 - Pure hypercholesterolemia, unspecified Category: Medical Plan: Avoid foods that are high in cholesterol such as red meat, fried foods, eggs and baked goods. Triglyceride goal of less than 150 and LDL goal of less than 130. Patient has not been taking the simvastatin has not made any dietary lifestyle modifications since her last visit. Plan to repeat the blood work and consider restarting on simvastatin if elevated. (2) Upper back pain: Code(s): M54.9 - Dorsalgia, unspecified Category: Medical Plan: For the upper back pain discussed activity and posture modification. Appears to be muscular in nature as she does have stiffness in the back. Recommend the use of heating pads, gentle massage and stretching as well as Tylenol as needed. Plan This note was constructed using voice recognition software. While every effort has been made to ensure accuracy and mercantile agent, still areas may have been included sometimes these areas may affect the content or meeting of the given symptoms. Total time spent caring for the patient today was 20 minutes. This includes time spent before the visit reviewing the chart, time spent during the visit, and time spent after the visit and documentation.
[2025-04-07 15:32] VITALS: BP 126/78
--- OUTSIDE RECORDS SUMMARY | 2025-04-07 18:35 | XMS_ITS | Clinical Summary ---
Author Organization [address] Address [address] [place] [address] Care Team Providers Care Technical Solutions Director Name Role Phone No, Pcp (Do Not Change Name) Primary Care Provid er Unavailable Allergies Active Allergy Reactions Criticality Noted Date Comments Aspirin 02/23/2015 Medications No known medications Immunizations Immunization Administration Dates Next Due Rho(D)-IG 02/24/2015 Social [...] 79 06/19/2017 2:36 AM EST Temperature 36.9 C (98.4 F) 06/19/2017 2:36 AM EST Respiratory Rate 18 06/19/2017 2:36 AM EST [...] screening 2007 Colon cancer screening, Colonoscopy 2012 Pneumococcal Vaccine (50+ ye ars) (1 of 1 - PCV) 2017 Shingles vaccine (Shingrix) (1 of 2 - Shingrix (RZV) 2 Dose Standard Series) 2017 Diabetes screening 02/23/2018 02/23/2015 Influenza vaccine 02/19/2025 Covid-19 vaccine series ( - 2023-25 season) 2025 RSV Immunization (1 - 1-dose 75+ series) 2042 Meningococcal B Vaccine Aged Out No l onger eligible based on patient's age to complete this topic Meningococcal Vaccine Aged Out No melony nick eligible based on patient's age to complete this topic Procedures Procedure Name Priority Date/Time Associated Diagnosis Comments BASIC METABOLIC PANEL STAT 02/23/2015 11:26 PM EDT from Last 3 Months or Most Recently Relevant to Health Maintenance Results * (ABNORMAL) Basic metabolic panel (02/23/2015 11:26 PM EDT) Glucose 128(H) 70 - 100 mg/dL [facility] BUN 16 7 - 20 mg/dL [facility] Creatinine 0.7 0.5 - 1.2 mg/dL [facility] BUN/Creatinine Ratio 22.9(H) 10.0 - 20.0 [facility] Anion Gap 16 7 - 16 [facility] CO2 19.3(L) 22.0 - 30.0 mmol/L [facility] Chloride 103 96 - 106 mmol/L [facility] Sodium 138 135 - 145 mmol/L [facility] Potassium 4.2 3.3 - 5.0 mmol/L [facility] Calcium 9.0 8.8 - 10.2 mg/dL [facility] Blood specimen (specimen) 02/23/2015 11:26 PM EDT Narrative [facility] - 02/24/2015 12:05 AM EDT HIS Add-on test: HCGQ 02/23/2015 23:42 JU us Fernando Espino MD LAB BLOOD ORDERABLES Final Res ult [facility] [address] [place] [address] from Last 3 Months or Most Recently Relevant to Health Maintenance Insurance [id number] MEDICAID [id number] MEDICAID [id number] MEDICAID [id number] MEDICAID Care Teams Technical Solutions Director Relationship Specialty Start Date End Date No, Pcp (Do Not Change Name) PCP - General 02/23/15
--- OUTSIDE RECORDS SUMMARY | 2025-04-07 18:35 | XMS_ITS ---
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
--- OUTSIDE RECORDS SUMMARY | 2025-04-07 18:35 | XMS_ITS | Clinical Summary ---
Author Organization [facility] Address [address] [place] [address] Care Team Providers Care Wood Turning Lathe Operator Name Role Phone Pcp, No Primary Care Provider Unavailabl e Allergies No known active allergies Medications acetaminophen-c odeine (TYLENOL #3) 300-30 MG per tablet Take 1-2 tablets by mouth 4 times daily (every 6 hours) as needed for severe pain. Max Daily Amount: 8 tablets 8 tablet 04/11/2022 Active amoxicillin-cla vulanate (AUGMENTIN) 875-125 MG per tablet Take 1 tablet by mouth 2 (two) times a day. Take as directed or until you run out 20 tablet 04/11/2022 Active Social History Tobacco Use Types Packs/Day Years Used Date Smoking Tobacco: Never Smokeless Tobacco: Never Alcohol Use Standard Drinks/Week Comments Not Currently 0 (1 standard drink = 0.6 oz pur e alcohol) Comments Unknown Sex and Gender Information Value Date Recorded Sex Assigned at Not on file Legal Sex Female 6:26 PM EST Gender Identity Not on file Sexual Orientation Not on file Last Filed Vital Signs Vital Sign Reading Time Taken Comments Blood Pressure 168/88 04/11/2022 5:08 AM EDT Pulse 87 04/10/2022 10:49 PM EDT Temperature 36.7 C (98.1 F) 04/10/2022 10:49 PM EDT Respiratory Rate 18 04/10/2022 10:49 PM EDT [...] (1 of 3 - 19+ 3-dose series) 05/22 Pap Smear (Ages 21-65) 1988 Mammogram 2007 Colonoscopy 2012 Pneumococcal Vaccines 50+ (1 of 1 - PCV) 2017 Zoster (Shingles) Vaccine (1 of 2) 2017 Influenza Vaccine 02/19/2025 COVID-19 Vaccine ( season) 2025 Insurance [facility] Care Teams Wood Turning Lathe Operator Relationship Specialty Start Date End Date Pcp, No PCP - General General Medicine 04/10/22
== END 2025-04-07 15:38 | disposition home or self-care (01) ==
LOC: HO.HMCH 15:03
DX: E78.00 Pure hypercholesterolemia, unspecified (principal); M54.9 Dorsalgia, unspecified

== ENCOUNTER → 2025-04-07 15:02 | Outpatient (BNVA) | payer OTHER, SELFPAY | DX: E78.00 Pure hypercholesterolemia, unspecified (principal); G43.909 Migraine, unspecified, not intractable, without status migrainosus; M54.9 Dorsalgia, unspecified | CPT/HCPCS: 99212 ==

== ENCOUNTER 2025-04-12 06:40 | Outpatient (REF) | payer OTHER, SELFPAY ==
--- OUTSIDE RECORDS SUMMARY | 2025-04-12 06:45 | XMS_ITS | Clinical Summary ---
Author Organization [facility] Address [address] [place] [address] Care Team Providers Care Residential Appliance Repair Technician Name Role Phone Pcp, No Primary Care [...] 02/19/2025 COVID-19 Vaccine ( season) 2025 Insurance [facility] [address] Care Teams Residential Appliance Repair Technician Relationship Specialty Start Date End Date Pcp, No PCP - General General Medicine 04/10/22
--- OUTSIDE RECORDS SUMMARY | 2025-04-12 06:45 | XMS_ITS | Clinical Summary ---
Author Organization [address] Address [address] [place] [address] Care Team Providers Care Dental Aide Name Role Phone No, Pcp (Do Not [...] EDT) Glucose 128(H) 70 - 100 mg/dL [facility] BUN 16 7 - 20 mg/dL [facility] Creatinine 0.7 0.5 - 1.2 mg/dL [facility] BUN/Creatinine Ratio 22.9(H) 10.0 - 20.0 [facility] Anion Gap 16 7 - 16 [facility] CO2 19.3(L) 22.0 - 30.0 mmol/L [facility] Chloride 103 96 - 106 mmol/L [facility] Sodium 138 135 - 145 mmol/L [facility] Potassium 4.2 3.3 - 5.0 mmol/L [facility] Calcium 9.0 8.8 - 10.2 mg/dL [facility] Blood specimen (specimen) 02/23/2015 11:26 PM EDT Narrative [facility] - 02/24/2015 12:05 AM EDT HIS Add-on test: HCGQ 02/23/2015 23:42 JU us Fernando Espino MD LAB BLOOD ORDERABLES Final Res ult [facility] [address] [place] [address] from Last 3 Months or Most Recently Relevant to Health Maintenance Insurance [id number] MEDICAID [id number] MEDICAID [id number] MEDICAID [id number] MEDICAID Care Teams Dental Aide Relationship Specialty Start Date End Date No, Pcp (Do Not Change Name) PCP - General 02/23/15
[2025-04-12 07:52] LABS: Appearance Urine Clear; Glucose Urine UA Negative (Negative); PH 5.5 (5.0-9.0); Specific Gravity - Urine 1.025 (1.005-1.025); UMIC TRIGGER UACC YES
[2025-04-12 08:08] LABS: Alanine Aminotransferase 20 U/L (0-31); Albumin Level 4.3 g/dL (3.5-5.0); Alkaline Phosphatase 86 U/L (39-117); Anion Gap 9 (12-20); Aspartate Amino Transferase 22 U/L (5-31); Blood Urea Nitrogen 23 mg/dL (9-16); Calcium 9.3 mg/dL (8.4-10.2); Carbon Dioxide 29 mmol/L (22-29); Chloride 106 mmol/L (96-108); Cholesterol 239 mg/dL (<200); Estimated Glomerular Filt Rate > 60; HDL Cholesterol 43 mg/dL (>40); Potassium 4.7 mmol/L (3.3-5.1); Sodium 139 mmol/L (135-145); Total Protein 7.4 g/dL (6.5-8.0); Triglycerides 91 mg/dL (<150)
== END 2025-04-12 06:41 | disposition home or self-care (01) ==
LOC: HO.LAB 06:40
DX: Z00.00 Encounter for general adult medical examination without abnormal findings (principal); E78.00 Pure hypercholesterolemia, unspecified
CPT/HCPCS: 36415; 80053; 80061; 81001

== ENCOUNTER 2025-05-14 07:09 | Emergency (ER) | payer OTHER, SELFPAY ==
[2025-05-14 07:12] VITALS: BP 142/78; PULSE 69; RESP 18; TEMP 36.8; O2SAT 99; BMI 27.5
[2025-05-14 07:35] LABS: MANUAL DIFF FLAG NO
[2025-05-14 07:38] LABS: Hematocrit 37.5 % (37.0-47.0); Hemoglobin 12.0 g/dl (12.0-16.0); Imm Gran Abs Auto 0.01 X10*3/uL (0.00-0.03); Imm Gran Pct Auto 0.1 % (0.0-0.4); Lymphocytes Absolute Auto 2.8 X10*3/uL (1.2-4.9); Mean Corpuscular HGB Conc 32.0 g/dl (31.0-35.0); Mean Corpuscular Hemoglobin 26.7 pg (27.0-33.0); Mean Corpuscular Volume 83.5 fL (80.0-98.0); NRBC Abs Auto 0.000 X10*3/uL (0.0-0.012); NRBC Pct Auto 0.0 /100WBC (0.0-0.2); Platelet Count 241 X10*3/uL (160-400); Red Blood Count 4.49 X10*6/uL (4.20-5.50); White Blood Count 9.4 X10*3/uL (4.8-10.8)
[2025-05-14 07:42] LABS: Appearance Urine Clear; Glucose Urine UA Negative (Negative); PH 6.5 (5.0-9.0); Specific Gravity - Urine <= 1.005 (1.005-1.025); UMIC TRIGGER UACC YES
[2025-05-14 07:53] LABS: Alanine Aminotransferase 19 U/L (0-31); Albumin Level 4.5 g/dL (3.5-5.0); Alkaline Phosphatase 85 U/L (39-117); Anion Gap 10 (12-20); Aspartate Amino Transferase 25 U/L (5-31); Blood Urea Nitrogen 13 mg/dL (9-16); Calcium 9.3 mg/dL (8.4-10.2); Carbon Dioxide 28 mmol/L (22-29); Chloride 108 mmol/L (96-108); Creatinine Clr Calc Pharmacy 66.6; Estimated Glomerular Filt Rate > 60; Lipase 20 U/L (8-78); Potassium 4.3 mmol/L (3.3-5.1); Sodium 142 mmol/L (135-145); Total Protein 7.6 g/dL (6.5-8.0)
--- NOTE | 2025-05-14 08:19 | ED_ITS ---
HPI - Abdominal Pain General Chief Complaint: Abdominal Pain Stated Complaint: right arm pain Time Seen by Provider: 05/14/25 07:49 Source: patient, RN notes reviewed, old records reviewed and [employer] Mode of arrival: ambulatory Limitations: language barrier (Citizen [place]-speaking) History of Present Illness ED Provider: WENDI Corbin HPI narrative: 59-year-old female with medical history of HLD, migraines, s/p rotator cuff repair 04/22/25, presents to ED due to 3 days of R sided abdominal pain. Paient states she has been experiencing R sided abdominal pain that originates at the mid back and wraps around to the waist line that is worse with movement and was associated with an episode of nausea yesterday. Patient states her bowel movements have been soft over the past 3 days, however, last bowel movement was last night and was normal for her. Denies chest pain, SOB, difficulty breathing, vomiting, black/tarry stool, urinary symptoms, fevers, chills Related Data Home Medications ?Medication ?Instructions ?Recorded ?Confirmed No Known Home Meds 04/07/25 04/07/25 Previous Rx's ?Medication ?Instructions ?Recorded simvastatin 5 mg tablet 5 mg PO BEDTIME #90 tabs Allergies Allergy/AdvReac Type Severity Reaction Status Date / Time No Known Allergies Allergy Verified 05/14/25 07:15 Review of Systems Review of Systems CONST: Negative for fever, body aches and chills. HENT: Negative for neck pain/stiffness, headache, congestion, sore throat, swelling. EYES: Negative for discharge/pain or vision changes. RESP: Negative for cough/hemoptysis and shortness of breath. CV: Negative chest pain, difficulty breathing, palpitations. ABD: Negative pain, nausea, vomiting. POS R sided abdominal pain, originates from thoracic spine and wraps around waistline : Negative increase frequency, dysuria, blood in urine or stool. MUSC: Negative for muscle aches, edema. SKIN: Negative rash, lesions/sores. NEURO: Negative headache, dizziness, weakness. [facility] Past Medical History Attestation statement: The following information was validated with the patient. Source: old records reviewed and nursing notes reviewed Medical History Migraines Vitamin D deficiency Back pain Presbyopia Insomnia Surgical History Rotator cuff tear, right Hx of cholecystectomy Hx of section Social History Social History Housing: House Are you a primary care support representative to a significant other at home: No Do you presently have visiting nurse or other home services: No Alcohol intake: never Patient Tobacco Use Status: Never used Tobacco Smoked in Last 30 Days: No e-Cigarette/Vaping Use: Never Used Second Hand Smoke Exposure: No Use of substances other than those prescribed or required for medical reasons: No Advance Directives: No Advance Directives Information Provided: Yes Patient : No service: No Current occupational status: unemployed Sexual orientation: Straight/Heterosexual Gender identity: Female Cognitive needs: No Hearing needs: No Vision needs: Yes (Glasses) Physical Exam ED Vital Signs: Vital Signs - 24 hr 05/14/25 07:12 05/14/25 08:28 Temperature 98.3 F 98.3 F Pulse Rate 69 69 Respiratory Rate 18 18 Blood Pressure 142/78 H 142/78 H Pulse Oximetry 99 99 Oxygen Delivery Method Room Air Room Air BMI result Body Mass Index 27.5 GENERAL APPEARANCE: ?AxOx4, generally well-appearing, no acute distress. HEENT: ?NC, AT. MMM. EOMI, clear conjunctiva, oropharynx clear. NECK: ?Supple without lymphadenopathy.? No stiffness or restricted ROM. HEART:? Normal rate and regular rhythm, normal S1/S1, no m/r/g LUNGS:? CTAB, moving air well. No crackles or wheezes are heard. ABDOMEN: ?Soft, nontender, nondistended, no rigidity. Patient is most tender when pinching and manipulating the side of the waist of the transversus abdominis musculature, Patient has pain when instructed to use her core to sit up in this region, I had patient stand up and bend laterally to her left side which reproduces a pulling sensation and pain of the R side of the waist, no overlying skin changes or rashes noted BACK: No CVAT, no obvious deformity. TTP over T9-T12 of thoracic paraspinal muscles, no midline spinal tenderness, no bony step offs palpated, ROM intact EXTREMITIES: ?Without cyanosis, clubbing or edema. NEUROLOGICAL: ?Grossly nonfocal. Alert and oriented, moving all 4 extremities. Observed to ambulate with normal gait. Skin: ?Warm and dry without any rash. Course Reevaluation(s) Reevaluation #1: Patient has right-sided back and abdominal pain has improved considerably after being medicated with 30 mg IM Toradol, 975 p.o. Tylenol. At this time patient's symptoms are most consistent with musculoskeletal pain, instead of true abdominal pain. I had patient use her core muscles to sit up, and do lateral bending, and she reports pain has significantly subsided after medication. I counciled patient to follow up with her primary care doctor. I counseled patient on strict return precautions. Patient is in agreement with the plan Time: 09:24 Medical Decision Making Medical Decision Making MDM Narrative: 59-year-old female with medical history of HLD, migraines, s/p rotator cuff repair 04/22/25, presents to ED due to 3 days of R sided abdominal pain. Paient states she has been experiencing R sided abdominal pain that originates at the mid back and wraps around to the waist line that is worse with movement and was associated with an episode of nausea yesterday. Patient states her bowel movements have been soft over the past 3 days, however, last bowel movement was last night and was normal for her. Denies fall, trauma, injury, history of IVDU, recent travel, sick contacts. VS on initial observation-BP 142/78, pulse rate of 69, respiratory rate of 18, afebrile with oral temp of 98.3?, O2 saturation 99% on room air. On physical exam the abdomen is oft, nontender, nondistended, no rigidity. Patient is most tender when pinching and manipulating the side of the waist of the transversus abdominis musculature, Patient has pain when instructed to use her core to sit up in this region, I had patient stand up and bend laterally to her left side which reproduces a pulling sensation and pain of the R side of the waist, no overlying skin changes or rashes noted, No CVAT, no obvious deformity. TTP over T9-T12 of thoracic paraspinal muscles, no midline spinal tenderness, no bony step offs palpated, ROM intact Labs without leukocytosis/leukopenia, no evidence of anemia with H&H stable, lipase WNL at 20, LFTs WNL, no electrolyte abnormalities. UA reveals trace leukocyte esterase, without urine bacteria, patient without urinary symptoms. On physical exam, I believe this is more musculoskeletal pain the abdominal pain as patient does not have any true tenderness of the 4 quadrants of the abdomen. Patient is surgically without her gallbladder, LFTs normal, no hepatomegaly on physical exam, patient is afebrile, without leukocytosis, is moving her bowels and passing flatus, no indication for advanced imaging at this time. Patient is tender at the waistline and when palpating/squeezing and manipulating the transversus abdominis muscle and of the thoracic paraspinal muscles, I believe her pain is most likely musculoskeletal in nature. Patient to be medicated with 30 mg IM Toradol, 975 p.o. Tylenol to see if this improves her pain. Differential Diagnosis Differential Diagnoses: The differential diagnosis associated with the presentation includes acute abdomen nephrolithiasis UTI abdominal muscle strain Admission/Observation Consideration of admission/observation: Escalation of care including admission/observation considered Lab Data MDM Lab Attestation statement: I reviewed the patient's lab results. 05/14/25 07:30 05/14/25 07:30 Labs: Lab Results 05/14/25 05/14/25 Range/Units 07:28 07:30 WBC 9.4 (4.8-10.8) X10*3/uL RBC 4.49 (4.20-5.50) X10*6/uL Hgb 12.0 (12.0-16.0) g/dl Hct 37.5 (37.0-47.0) % MCV 83.5 (80.0-98.0) fL MCH 26.7 L (27.0-33.0) pg MCHC 32.0 (31.0-35.0) g/dl RDW 14.2 (11.0-16.0) % Plt Count 241 (160-400) X10*3/uL MPV 10.4 (9.4-12.3) fL Immature Gran % (Auto) 0.1 (0.0-0.4) % Neut % (Auto) 57.3 (45-73) % Lymph % (Auto) 30.0 (20-40) % Benzie % (Auto) 8.8 (2-11) % Eos % (Auto) 3.2 (0-4) % Baso % (Auto) 0.6 (0-2) % Lymph # (Auto) 2.8 (1.2-4.9) X10*3/uL Benzie # (Auto) 0.8 (0.1-1.2) X10*3/uL Eos # (Auto) 0.3 (0.0-0.4) X10*3/uL Baso # (Auto) 0.1 (0.0-0.2) X10*3/uL Abs Immat Gran (auto) 0.01 (0.00-0.03) X10*3/uL Absolute Neuts (auto) 5.4 (2.0-8.3) x10*3/uL Absolute Nucleated RBC 0.000 (0.0-0.012) X10*3/uL Nucleated RBC % (auto) 0.0 (0.0-0.2) /100WBC Sodium 142 (135-145) mmol/L Potassium 4.3 (3.3-5.1) mmol/L Chloride 108 (96-108) mmol/L Carbon Dioxide 28 (22-29) mmol/L Anion Gap 10 L (12-20) BUN 13 (9-16) mg/dL Creatinine 0.91 (0.5-1.4) mg/dL Estim Creat Clear Calc 66.6 Estimated GFR > 60 Random Glucose 119 H (60-115) mg/dL Calcium 9.3 (8.4-10.2) mg/dL Total Bilirubin 0.5 (0.0-1.0) mg/dL AST 25 (5-31) U/L ALT 19 (0-31) U/L Alkaline Phosphatase 85 (39-117) U/L Total Protein 7.6 (6.5-8.0) g/dL Albumin 4.5 (3.5-5.0) g/dL Lipase 20 (8-78) U/L Urine Color Yellow Urine Appearance Clear Urine pH 6.5 (5.0-9.0) Ur Specific [place] <= 1.005 (1.005-1.025) Urine Protein Negative (Neg-Trace) mg/dL Urine Glucose (UA) Negative (Negative) mg/dL Urine Ketones Negative (Negative) mg/dL Urine Blood Negative (Negative) Urine Nitrite Negative (Negative) Ur Leukocyte Esterase Trace H (Negative) Urine RBC 0-2 (0-2) /HPF Urine WBC 0-5 (0-5) /HPF Ur Squamous Epith Cells 0-2 (0-2) /HPF Urine Bacteria None Seen (None Seen) Hyaline Casts 0-2 (0-2) /LPF External Record Review External record reviewed: Inpatient record, Office record and Outpatient record Chronic Conditions Patient?s care impacted by: Other (HLD, migraines) Medications Administered Discontinued Medications Generic Name Dose Route Start Last Admin Trade Name Juanito PRN Reason Stop Dose Admin Acetaminophen 975 mg 05/14/25 08:25 05/14/25 08:39 Acetaminophen 325 Mg Tablet PO 05/14/25 08:26 975 mg ONCE ONE Administration Ketorolac Tromethamine 30 mg 05/14/25 08:25 05/14/25 08:39 Ketorolac Tromethamine 30 Mg/Ml Vial IM 05/14/25 08:26 30 mg ONCE ONE Administration Discharge Plan Discharge Clinical Impression: Abdominal muscle strain Patient Disposition: Home, Self-Care Instructions: Muscle Strain (DC) Additional Instructions: You were evaluated in the ED due to right-sided abdominal pain. Your labs were reassuring as there was no significant elevation of your white blood cell count indicative of infection, no evidence of anemia, no electrolyte abnormalities. Your lipase which is an enzyme that the pancreas gives off when under stress or damage was normal today. Your physical exam revealed that you had tenderness of the musculature at the waistline, without tenderness when palpating the organs of your abdomen. You were medicated with 30 mg of intramuscular injection of Toradol which is a strong NSAID like Ibuprofen and 975mg of oral tylenol which improved your symptoms. At this time I believe your symptoms are due to muscle strain of your mid back and abdominal muscles. You were given NSAIDS and Tylenol while in the department you do not need to take another dose of tylenol or ibuprofen untill 6pm tonight. I recommend that you take 500 mg of tylenol and 400mg of ibuprofen every 6 hours to manage this pain at home. Please follow up with your primary care doctor to ensure your symptoms are improving. Please return to the ED if you experience worsening pain, nausea, vomiting, chest pain, shortness of breath or any new/worsening/concerning symptoms Prescriptions: No Action simvastatin 5 mg tablet 5 mg PO BEDTIME Qty: 90 1RF No Known Home Meds Print Language: Citizen Of [place]
[2025-05-14 08:28] VITALS: BP 142/78; PULSE 69; RESP 18; TEMP 36.8; O2SAT 99
--- OUTSIDE RECORDS SUMMARY | 2025-05-14 09:02 | XMS_ITS | Clinical Summary ---
Author Organization [facility] Address [address] [place] [address] Care Team Providers Care Swat Team Member Name Role Phone Pcp, No Primary Care [...] 2017 Influenza Vaccine 02/19/2025 COVID-19 Vaccine ( - 2023- season) 2025 RSV Vaccine 50 years and old er and Patients (1 - 1-dose 75+ series) [address] [facility] Care Teams Swat Team Member Relationship Specialty Start Date End Date Pcp, No PCP - General General Medicine 04/10/22
--- OUTSIDE RECORDS SUMMARY | 2025-05-14 09:02 | XMS_ITS | Clinical Summary ---
Author Organization [address] Address [address] [place] [address] Care Team Providers Care Pressure Testing Technician Name Role Phone No, Pcp (Do Not [...] EDT) Glucose 128(H) 70 - 100 mg/dL [facility] BUN 16 7 - 20 mg/dL [facility] Creatinine 0.7 0.5 - 1.2 mg/dL [facility] BUN/Creatinine Ratio 22.9(H) 10.0 - 20.0 [facility] Anion Gap 16 7 - 16 [facility] CO2 19.3(L) 22.0 - 30.0 mmol/L [facility] Chloride 103 96 - 106 mmol/L [facility] Sodium 138 135 - 145 mmol/L [facility] Potassium 4.2 3.3 - 5.0 mmol/L [facility] Calcium 9.0 8.8 - 10.2 mg/dL [facility] Blood specimen (specimen) 02/23/2015 11:26 PM EDT Narrative [facility] - 02/24/2015 12:05 AM EDT HIS Add-on test: HCGQ 02/23/2015 23:42 JU us Fernando Espino MD LAB BLOOD ORDERABLES Final Res ult [facility] [address] [place] [address] from Last 3 Months or Most Recently Relevant to Health Maintenance Insurance [id number] MEDICAID [id number] MEDICAID [id number] MEDICAID [id number] MEDICAID Care Teams Pressure Testing Technician Relationship Specialty Start Date End Date No, Pcp (Do Not Change Name) PCP - General 02/23/15
[2025-05-14 10:03] VITALS: BP 142/78; PULSE 69; RESP 18; TEMP 36.8; O2SAT 99
[2025-05-14 10:08] VITALS: BP 142/78; PULSE 69; RESP 18; TEMP 36.8; O2SAT 99
== END 2025-05-14 10:08 | disposition home or self-care (01) ==
PROVIDERS: Emergency Provider Emergency Medicine
DX: S39.011A Strain of muscle, fascia and tendon of abdomen, initial encounter (principal); X58.XXXA Exposure to other specified factors, initial encounter; Y93.89 Activity, other specified; Y92.89 Other specified places as the place of occurrence of the external cause; Y99.8 Other external cause status
CPT/HCPCS: 36415; 80053; 81001; 83690; 85025; 96372; 99284; J1885